=== PATIENT | male | born 1950 | race Caucasian/White ===

== ENCOUNTER 2021-01-14 11:31 | Outpatient (REF) | payer MEDICARE, OTHER, SELFPAY ==
[2021-01-14 13:02] LABS: Appearance Urine CLEAR; Color Urine YELLOW; Glucose Urine UA NEG (NEG); Leukocyte Esterase Urine NEG (NEG); Nitrite Urine NEG (NEG); PH 5.5 (5.0-8.0); Specific Gravity - Urine 1.025 (1.005-1.025); Urine Blood NEG (NEG); Urine Ketones NEG (NEG); Urine Protein TRACE MG/DL (NEG-TRACE)
[2021-01-14 13:19] LABS: Imm Gran Abs Auto 0.01 X10*3/uL (0.00-0.03); Imm Gran Pct Auto 0.2 % (0.0-0.4); MANUAL DIFF FLAG SCAN; Mean Corpuscular Hemoglobin 31.3 pg (27.0-33.0); PLT CLUMP 1; SCAN SMEAR FLAG 1
[2021-01-14 13:22] LABS: Basophils Percent Auto 0.8 % (0-2); Eosinophils Absolute Auto 0.1 X10*3/uL (0.0-0.4); Eosinophils Percent Auto 2.5 % (0-4); Hematocrit 43.2 % (42-52); Hemoglobin 14.5 g/dl (14.0-18.0); Mean Corpuscular HGB Conc 33.6 g/dl (31.0-36.0); Mean Corpuscular Volume 93.3 fL (80-98); Mean Platelet Volume 11.1 fL (9.4-12.4); Monocytes Absolute Auto 0.5 X10*3/uL (0.1-1.2); Neutrophils Absolute Auto 3.2 X10*3/uL (2.0-8.3); Neutrophils Percent Auto 66.5 % (45-73); Red Blood Count 4.63 X10*6/uL (4.60-5.80); Red Cell Distribution Width 14.6 % (11.0-16.0); White Blood Count 4.8 X10*3/uL (4.8-10.8)
[2021-01-14 13:44] LABS: Platelet Count 83 X10*3/uL (160-400)
[2021-01-14 13:45] LABS: SLIDE REVIEW VERIFIED
[2021-01-14 13:58] LABS: Creatinine Urine 136.14 mg/dL; Microalbum/Creatinine Ratio Ur 9.5 ug/mg cr; Protein/Creatinine Ratio, Ur 0.15 (<0.2); Total Protein Urine Random 20 mg/dL (<12)
[2021-01-14 14:15] LABS: Albumin Level 4.3 g/dL (3.5-5.0); Anion Gap 13 (12-20); Blood Urea Nitrogen 33 mg/dL (9-16); Calcium 8.8 mg/dL (8.4-10.2); Carbon Dioxide 18 mmol/L (22-29); Chloride 115 mmol/L (96-108); Estimated Glomerular Filt Rate 37; Magnesium 1.9 mg/dL (1.6-2.6); Phosphorus 3.6 mg/dL (2.7-4.5); Potassium 4.1 mmol/L (3.3-5.1); Sodium 142 mmol/L (135-145); Total Protein 6.5 g/dL (6.5-8.0)
[2021-01-14 15:18] LABS: Renal w Reflex Lab Use Only Order verified
== END 2021-01-14 11:32 | disposition home or self-care (01) ==
LOC: HO.LAB 11:31
PROVIDERS: PCP Family Medicine; Visit Provider Internal Medicine Nephrology
DX: I12.9 Hypertensive chronic kidney disease with stage 1 through stage 4 chronic kidney disease, or unspecified chronic kidney disease (principal); N18.4 Chronic kidney disease, stage 4 (severe); N20.0 Calculus of kidney; D63.1 Anemia in chronic kidney disease
CPT/HCPCS: 36415; 80051; 81003; 82040; 82043; 82306; 82310; 82565; 83735; 84100; 84155; 84156; 84520; 85025

== ENCOUNTER 2021-02-18 08:02 | Day surgery (SDC) | payer MEDICARE, OTHER, SELFPAY ==
[2021-02-12 14:35] VITALS: BMI 22.2
--- NOTE | 2021-02-15 08:44 | P.CONAN_ITS ---
Documented by User: Pam Anthony NP 02/15/21 08:47 HPI - Anesthesia Eval Consult details Narrative: 70yo M for ?Upper Endoscopy and Colonoscopy ETOH cirrhosis (no ETOH since 2015) - h/o varices with banding. On transplant list with [facility] Past Medical History Medical History Anxiety Chronic kidney disease (CKD), stage III (moderate) Cirrhosis Crohn's disease Depression Gout Has a tremor History of basal cell cancer History of blood transfusion Hx of esophageal varices Hx of renal calculi Liver transplant candidate Neuropathy Surgical History Surgical History History of esophagogastroduodenoscopy (EGD) Hx of colectomy Hx of colonoscopy Hx of cystoscopy Social History Social History (Updated 02/12/21 @ 14:30 by Dia Lucia RN) Alcohol intake: former Year quit: 2016 Patient Tobacco Use Status: Never used Tobacco Use of substances other than those prescribed or required for medical reasons: No Are you DNR?: No Advance Directives: No Advance Directives Information Provided: Yes (mailed info) Advance Directives on File: No Recently lost weight without trying: No Meds Allergies Allergy/AdvReac Type Severity Reaction Status Date / Time No Known Allergies Allergy Verified 02/18/21 08:17 Home Medications Medication Instructions Recorded Confirmed Last Taken Type bupropion HCl 100 mg tablet,12 hr 1 tab PO QAM 02/12/21 02/12/21 Unknown History sustained-release cholecalciferol (vitamin D3) 50 50 mcg PO DAILY 02/12/21 02/12/21 Unknown History mcg (2,000 unit) capsule (Vitamin D3) cyanocobalamin (vitamin B-12) 1 ml IM QMONTH 02/12/21 02/12/21 Unknown History 1,000 mcg/mL injection solution iron 02/12/21 02/12/21 Unknown History lamotrigine 100 mg tablet 1 tab PO BEDTIME 02/12/21 02/12/21 Unknown History mirtazapine 30 mg tablet 1 tab PO BEDTIME 02/12/21 02/12/21 Unknown History multivitamin 1 tab PO DAILY 02/12/21 02/12/21 Unknown History potassium citrate 15 mEq (1,620 1 tab PO BID 02/12/21 02/12/21 Unknown History mg) tablet,extended release propranolol 40 mg tablet 1 tab PO BEDTIME 02/12/21 02/12/21 Unknown History Exam Exam Date and Time: February 15, 2021 0844 Height,Weight and Vital Signs: Height 6 ft Weight 74.389 kg Pertinent Lab Results Pertinent Lab Results: Laboratory Tests 01/14/21 01/14/21 11:35 11:57 WBC 4.8 Hgb 14.5 Hct 43.2 Plt Count 83 L Sodium 142 Potassium 4.1 Chloride 115 H Carbon Dioxide 18 L BUN 33 H Creatinine 1.81 H Estimated GFR 37 Calcium 8.8 Phosphorus 3.6 Magnesium 1.9 Total Protein 6.5 Albumin 4.3 Assessment and Plan Assessment Anesthesia Assessment: Chart Reviewed Documented by User: Brandon Hart MD 02/18/21 09:11 [facility] Past Medical History Medical History Anxiety Chronic kidney disease (CKD), stage III (moderate) Cirrhosis Crohn's disease Depression Gout Has a tremor History of basal cell cancer History of blood transfusion Hx of esophageal varices Hx of renal calculi Liver transplant candidate Neuropathy Surgical History Surgical History History of esophagogastroduodenoscopy (EGD) Hx of colectomy Hx of colonoscopy Hx of cystoscopy Social History Social History (Updated 02/12/21 @ 14:30 by Dia Lucia RN) Alcohol intake: former Year quit: 2016 Patient Tobacco Use Status: Never used Tobacco Use of substances other than those prescribed or required for medical reasons: No Are you DNR?: No Advance Directives: No Advance Directives Information Provided: Yes (mailed info) Advance Directives on File: No Recently lost weight without trying: No Meds Allergies Allergy/AdvReac Type Severity Reaction Status Date / Time No Known Allergies Allergy Verified 02/18/21 08:17 Home Medications Medication Instructions Recorded Confirmed Last Taken Type bupropion HCl 100 mg tablet,12 hr 1 tab PO QAM 02/12/21 02/12/21 Unknown History sustained-release cholecalciferol (vitamin D3) 50 50 mcg PO DAILY 02/12/21 02/12/21 Unknown Histor y mcg (2,000 unit) capsule (Vitamin D3) cyanocobalamin (vitamin B-12) 1 ml IM QMONTH 02/12/21 02/12/21 Unknown History 1,000 mcg/mL injection solution iron 02/12/21 02/12/21 Unknown History lamotrigine 100 mg tablet 1 tab PO BEDTIME 02/12/21 02/12/21 Unknown History mirtazapine 30 mg tablet 1 tab PO BEDTIME 02/12/21 02/12/21 Unknown History multivitamin 1 tab PO DAILY 02/12/21 02/12/21 Unknown History potassium citrate 15 mEq (1,620 1 tab PO BID 02/12/21 02/12/21 Unknown History mg) tablet,extended release propranolol 40 mg tablet 1 tab PO BEDTIME 02/12/21 02/12/21 Unknown History Exam Airway Mallampati Class: II TM Dist: >3cm Neck ROM: Full
[2021-02-18 08:42] VITALS: BP 141/86; PULSE 79; RESP 16; TEMP 36.6; O2SAT 99
[2021-02-18] MEDS: Lactated Ringers 1,000 ML 100 ML IVCONT (08:55)
[2021-02-18 10:20] VITALS: BP 121/81; PULSE 81; RESP 12; TEMP 36.6; O2SAT 97
--- NOTE | 2021-02-18 10:26 | PM.OP ---
Brief Operative Note Date of Service: 02/18/21 Pre-op diagnosis: Cirrhosis, Crohn's, and Screening Post-op diagnosis: other (Esophageal varices, Duodenitis, Crohn's disease) Procedure: EGD and Colonoscopy to the anastomosis and SI with biopsies Surgeon: Sameer Valenzuela Anesthesia: MAC Was an Assembler [employer] used for this Procedure?: No Estimated blood loss (mL): 5.0 Pathology: other (A. Transverse colon B. Descending colon C. Sigmoid colon D. Rectum) Condition: stable Disposition: PACU
[2021-02-18 10:35] VITALS: BP 102/69; PULSE 80; RESP 16; TEMP 36.6; O2SAT 97
--- NOTE | 2021-02-18 11:06 | OP_ITS ---
SURGEON: Sameer Valenzuela MD INDICATIONS: The patient presents for evaluation of underlying history of cirrhosis and colorectal cancer screening with history of Crohn's colitis and family history of colon cancer. Full consent has been obtained from him for both procedures, including risks of bleeding and perforation. PREOPERATIVE DIAGNOSIS: POSTOPERATIVE DIAGNOSIS: PROCEDURE PERFORMED: Esophagogastroduodenoscopy, and colonoscopy to the anastomosis and small bowel with biopsies. ESTIMATED BLOOD LOSS: COMPLICATIONS: ANESTHESIA: Monitored anesthesia care. ASSISTANTS: SPECIMENS: PREOPERATIVE DIAGNOSES: Cirrhosis, colorectal cancer screening, history of Crohn disease, family history of colon cancer. POSTOPERATIVE DIAGNOSES: Cirrhosis, colorectal cancer screening, history of Crohn disease, family history of colon cancer, esophageal varices, duodenitis, chronic Crohn's colitis, internal hemorrhoids, diverticulosis. DESCRIPTION OF PROCEDURE: The patient was placed in the left lateral decubitus position. The Olympus video gastroscope was passed in the posterior oropharynx and upper esophagus under direct vision. The scope was passed slowly into the distal esophagus. The gastroesophageal junction appeared at 38 cm. Extending from this to approximately 33 cm, were 3 chains of grade 2 esophageal varices without any overlying mucosal changes of erythema, red cook, vessels, ulceration, nor bleeding. There was no esophagitis. The scope entered into the stomach. There was a small hiatal hernia. The scope was advanced to pylorus and duodenum was cannulated to the descending portion. The duodenum including the bulb appeared normal and some very minimal changes of duodenitis in the duodenal bulb. The scope was withdrawn back into the stomach. The gastric antrum and body appeared normal with good peristalsis. The scope was retroflexed visualizing the proximal stomach carefully, which appeared normal, without any sign of mass or ulceration. There was no varices nor portal gastropathy. The scope was straightened out and withdrawn back into the esophagus. Proximal to 33 cm, the esophageal mucosa appeared normal. The scope was withdrawn from the patient. He was turned around for colonoscopy. The digital rectal exam revealed no abnormalities. The Olympus video pediatric colonoscope was entered into the rectum and advanced easily to the level of the anastomosis. The small bowel was cannulated and appeared normal other than some very minimal areas of erosions. There was no significant active Crohn's disease. The anastomosis appeared normal. The scope was slowly withdrawn assessing all mucosal surfaces carefully. Preparation was good, but did have some significant areas of liquid stool, which were irrigated and removed with suction as best as possible. I did not visualize any sign of polyps. The mucosa did appear somewhat edematous, erythematous, and with some possible chronic changes of previous colitis, but there was no sign of any active colitis, polyps, nor angiodysplasias. Random biopsies were obtained in the transverse colon, descending colon, sigmoid colon, and rectum. There was some mild amount of sigmoid diverticulosis. In the rectum, scope was retroflexed visualizing internal hemorrhoids as well. The scope was straightened out and withdrawn from the patient. He tolerated both procedures well and was returned to the recovery area in stable condition. IMPRESSION: 1. Esophageal varices. 2. Duodenitis. 3. History of Crohn disease, rule out dysplasia. 4. Diverticulosis. 5. Internal hemorrhoids. PLAN: The results of the biopsies will be checked. Assuming there is no dysplasia, I would recommend repeat colonoscopy in 5 years. He is currently asymptomatic without any specific treatment for Crohn's disease and we shall continue to observe him. He has been advised to stay off all aspirin and NSAIDs long-term. He was advised to speak with his speech language pathology assistant at [facility] regarding possibly switching over his propranolol to Nadolol given the finding of the varices. He will be started on omeprazole 20 mg daily. I would recommend that he see me in 1 year for a followup visit, repeat colonoscopy in 5 years, and continue follow up with the [facility]. MD BRISA Mills/JOAQUIN / [id number] MTDD
== END 2021-02-18 11:20 | disposition home or self-care (01) ==
PROVIDERS: PCP Family Medicine; Visit Provider Internal Medicine
PROC: (CPT 45380; principal; 2021-02-18 09:10)
DX: Z12.11 Encounter for screening for malignant neoplasm of colon (principal); Z86.010 Personal history of colon polyps; Z80.0 Family history of malignant neoplasm of digestive organs; K57.30 Diverticulosis of large intestine without perforation or abscess without bleeding; K64.8 Other hemorrhoids; Z87.19 Personal history of other diseases of the digestive system; K74.69 Other cirrhosis of liver; I85.00 Esophageal varices without bleeding; K29.80 Duodenitis without bleeding; K44.9 Diaphragmatic hernia without obstruction or gangrene; Z79.899 Other long term (current) drug therapy
CPT/HCPCS: 45380; 43235; 88305; J2370

== ENCOUNTER 2021-10-15 15:13 | Outpatient (REF) | payer MEDICARE, OTHER, SELFPAY ==
[2021-10-15 15:41] LABS: Imm Gran Abs Auto 0.01 X10*3/uL (0.00-0.03); Imm Gran Pct Auto 0.2 % (0.0-0.4); Mean Corpuscular Volume 95.2 fL (80.0-98.0); Mean Platelet Volume 10.5 fL (9.4-12.4)
[2021-10-15 15:43] LABS: Basophils Percent Auto 0.7 % (0-2); Eosinophils Absolute Auto 0.1 X10*3/uL (0.0-0.4); Eosinophils Percent Auto 2.1 % (0-4); Hematocrit 39.8 % (42.0-52.0); Hemoglobin 13.6 g/dl (14.0-18.0); Mean Corpuscular HGB Conc 34.2 g/dl (31.0-36.0); Mean Corpuscular Hemoglobin 32.5 pg (27.0-33.0); Monocytes Absolute Auto 0.6 X10*3/uL (0.1-1.2); Neutrophils Absolute Auto 2.5 x10*3/uL (2.0-8.3); Red Blood Count 4.18 X10*6/uL (4.60-5.80); Red Cell Distribution Width 14.6 % (11.0-16.0)
[2021-10-15 15:47] LABS: White Blood Count 4.2 X10*3/uL (4.8-10.8)
[2021-10-15 15:48] LABS: Platelet Count 95 X10*3/uL (160-400)
[2021-10-15 16:04] LABS: Albumin Level 4.2 g/dL (3.5-5.0); Anion Gap 11 (12-20); Blood Urea Nitrogen 36 mg/dL (9-16); Calcium 8.7 mg/dL (8.4-10.2); Carbon Dioxide 20 mmol/L (22-29); Chloride 115 mmol/L (96-108); Estimated Glomerular Filt Rate 39; Magnesium 1.9 mg/dL (1.6-2.6); Phosphorus 3.5 mg/dL (2.7-4.5); Potassium 4.5 mmol/L (3.3-5.1); Sodium 141 mmol/L (135-145)
[2021-10-15 16:24] LABS: Vitamin D 25-OH Total 28.7 ng/mL (>30)
[2021-10-15 17:58] LABS: Appearance Urine CLEAR; Color Urine YELLOW; Glucose Urine UA NEG (NEG); Leukocyte Esterase Urine NEG (NEG); Nitrite Urine NEG (NEG); PH 5.5 (5.0-8.0); Urine Blood NEG (NEG); Urine Ketones NEG (NEG); Urine Protein NEG (NEG-TRACE)
[2021-10-15 18:19] LABS: Creatinine Urine 86.87 mg/dL; Microalbumin Urine < 5.0 mg/L; Total Protein Urine Random < 7 mg/dL (<12)
[2021-10-16 15:47] LABS: Calcium (PTHI) 8.9 mg/dL (8.6-10.3); PTHI 89 pg/mL (16-77)
== END 2021-10-15 15:14 | disposition home or self-care (01) ==
LOC: HO.LAB 15:13
PROVIDERS: Visit Provider Internal Medicine Nephrology
DX: I12.9 Hypertensive chronic kidney disease with stage 1 through stage 4 chronic kidney disease, or unspecified chronic kidney disease (principal); N18.32 Chronic kidney disease, stage 3b; D63.1 Anemia in chronic kidney disease; N20.0 Calculus of kidney; K74.69 Other cirrhosis of liver
CPT/HCPCS: 36415; 80051; 81003; 82040; 82043; 82306; 82310; 82565; 83735; 83970; 84100; 84156; 84520; 85025; 87086

== ENCOUNTER 2024-06-06 15:23 | Outpatient (REF) | payer MEDICARE, OTHER, SELFPAY ==
[2024-06-06 16:28] LABS: Basophils Percent Auto 0.8 % (0-2); Eosinophils Absolute Auto 0.1 X10*3/uL (0.0-0.4); Eosinophils Percent Auto 3.2 % (0-4); Hemoglobin 13.2 g/dl (14.0-18.0); Lymphocytes Absolute Auto 0.4 X10*3/uL (1.2-4.9); Lymphocytes Percent Auto 15.4 % (20-40); MANUAL DIFF FLAG SCAN; Mean Corpuscular HGB Conc 33.8 g/dl (31.0-36.0); Mean Corpuscular Hemoglobin 30.8 pg (27.0-33.0); Mean Corpuscular Volume 91.1 fL (80.0-98.0); Mean Platelet Volume 9.8 fL (9.4-12.4); Monocytes Absolute Auto 0.3 X10*3/uL (0.1-1.2); Monocytes Percent Auto 10.5 % (2-11); Neutrophils Absolute Auto 1.7 x10*3/uL (2.0-8.3); Neutrophils Percent Auto 70.1 % (45-73); Red Blood Count 4.28 X10*6/uL (4.60-5.80); Red Cell Distribution Width 15.8 % (11.0-16.0); SCAN SMEAR FLAG 1
[2024-06-06 16:29] LABS: Platelet Count 65 X10*3/uL (160-400); White Blood Count 2.5 X10*3/uL (4.8-10.8)
[2024-06-06 16:50] LABS: SLIDE REVIEW VERIFIED
--- OUTSIDE RECORDS SUMMARY | 2024-06-06 16:59 | XMS_ITS | Encounter Summary ---
Author Organization [facility] Address [address] [facility] [address] [place] [address] Phone Care Team Providers Care Milieu Technician Name Role Phone Curt Davis MD Primary Care Provider [phone] Reason for Visit * Reason Comments Med Refill Encounter Details Date Type Department Care Team (Late st Contact Info) Description 02/25/2024 Refill [facility] [address] [facility] [address] [place] [address] Jsotin Gorman MD [address] [address] Social History Tobacco Use Types Packs/Day Years Used Date Smoking Tobacco: Never Smokeless Tobacco: Never Alcohol Use Standard Drinks/Week Comments Yes 0 (1 standard drink = 0.6 oz pure alcohol) Alcoholic Drinks/day: Occasional social drink Sex and Gender Information Value Date Recorded Sex Assigned at Not on file Legal Sex Male 5:06 PM EST Gender Identity Not on file Sexual Orientation Not on file documented as of this encounter Plan of Treatment Upcoming Encounters Date Type Department Care Team (Late st Contact Info) Description 12/05/2024 2:30 PM EDT Office Visit [facility] [address] [place] [address] Jostin Gorman MD [address] [address] documented as of this encounter Visit Diagnoses Not on filedocumented in this encounter Care Teams Milieu Technician Relationship Specialty Start Date End Date Curt Davis MD [address] [place] [address] PCP - General 05/14/20 documented as of this encounter
--- OUTSIDE RECORDS SUMMARY | 2024-06-06 16:59 | XMS_ITS | Clinical Summary ---
Author Organization [facility] Address [address] [place] [address] [address] [place] [address] Phone Care Team Providers Care Mortgage Processor Name Role Phone Curt Davis MD Primary Care Provider [phone] Allergies No known active allergies Medications lamoTRIgine (LaMICtal) 100 MG dispersible tablet Take 1 tablet by mouth 1 (one) time each day Active ferrous sulfate 325 (65 Fe) MG tablet Take 325 mg by mouth 1 (one) time each day with breakfast Active cyanocobalamin (VITAMIN B-12) 1000 MCG/ML injection Comments: Filled Date: Oct 31 2014 12:00AM Patient Notes: INJECT 1 ML ONCE MONTHLY INTRAMUSCULARLY Duration: 30 11/01/19 15 Active Cholecalciferol 50 MCG (1999 UT) capsule Take 1 capsule by mouth 1 (one) time each day Active buPROPion (WELLBUTRIN) 100 MG tablet Take 1 tablet by mouth 1 (one) time each day Active Multiple Vitamin (multivitamin) capsule Take 1 capsule by mouth 1 (one) time each day Active mirtazapine (REMERON) 30 MG tablet Take 30 mg by mouth 1 (one) time each day 11/22/19 21 Active propranolol (INDERAL) 40 MG tablet Take 40 mg by mouth 1 (one) time each day 11/20/19 21 Active Potassium Citrate ER 15 MEQ (1620 MG) tablet controlled-rele ase TAKE 1 TABLET BY MOUTH TWICE A DAY 120 tablet 3 05/11/19 24 Active Additional Information Patient not taking.Reported on 06/06/2024 DULoxetine (CYMBALTA) [address] capsule Take by mouth 1 (one) time each day Activ e famotidine (PEPCID) 40 MG tablet Take 40 mg by mouth 1 (one) time each day in the evening Active Active Problems Problem Noted Date Diagnosed Date Closed trimalleolar fracture 11/07/2021 Regional enteritis of small intestine with large intestine 11/07/2021 Diarrhea 11/07/2021 Diverticulosis of colon 11/07/2021 Duodenitis 11/07/2021 History of esophageal varices 11/07/2021 History of gastrointestinal tract bypass 022 History of polyp of colon 11/07/2021 Non-healing surgical wound 11/07/2021 Open reduction of fracture with internal fixatio n 11/07/2021 Screening for malignant neoplasm of colon 2021 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/2021 Stage 3b chronic kidney disease 01/21/2021 Anemia in chronic kidney disease 01/16/2021 Chronic kidney disease stage 3 01/16/2021 Chronic kidney disease stage 4 01/16/2021 Hypertensive renal disease 01/16/2021 Renal stone 01/16/2021 Hyperuricemia without signs of inflammatory arthritis and tophaceous disease 01/16/2021 Awaiting organ transplant status 04/19/2017 Awaiting transplantation 04/19/2017 Lesion of liver 04/17/2017 Crohn's disease 02/21/2017 Portal systemic encephalopathy 08/12/2016 Depressive disorder 05/12/2016 Major depression, single episode 05/12/2016 Esophageal varix 04/14/2016 Cryptogenic cirrhosis of liver 04/14/2016 Recurrent kidney stone 04/14/2016 Encounters Date Type Department Care Team Description 06/06/2024 2:30 PM EST [facility] [address] [place] [address] Jostin Gorman MD Stage 3b chronic kidney disease (HCC) (Primary Dx); Renal stone; Hypertensive renal disease 03/24/2024 Office Communication [facility] [address] [facility] [address] [place] [phone] Jostin Gorman MD 03/22/2024 Refill [facility] [address] [place] [phone] Jostin Gorman MD from Last 3 Months Immunizations Name Administration Dates Next Due Hep B, Dialysis 05/20/2016 Hepatitis A 12/16/2016,05/20/2016 Hepatitis B 12/16/2016,08/12/2016,06/23/2016 Influenza Split High Dose Pr eservative Free IM 02/01/2019 Influenza, Quadrivalent, Preservative Free 02/02 Pfizer SARS-COV-2 07/26/2020,07/05/2020,07/04/19 21 Pneumococcal Conjugate 13-Valent 05/20/2016 Td, Unspecified 05/21/2006 Tdap 05/20/2016 Zoster 09/20/2012 Social History Tobacco Use Types Packs/Day Years [...] on file Sexual Orientation Not on file Last Filed Vital Signs Vital Sign Reading Time Taken Comments Blood Pressure 128/90 06/06/2024 2:23 PM EST Pulse 78 06/06/2024 2:23 PM EST Temperature - - Respiratory Rate - - Oxygen Saturation 97% 06/06/2024 2:23 PM EST Inhaled Oxygen Concentration - - Weight 69.9 kg (154 lb) 06/06/2024 2:23 PM EST Height 182.9 cm (6') 05/23/2019 12:00 PM EST Body Mass Index 20.89 05/23/2019 12:00 PM EST Plan of Treatment Upcoming Encounters Date Type Department Care Team (Late st Contact Info) Description 12/05/2024 2:30 PM EDT Office [facility] [address] [place] [address] Jostin Gorman MD [address] [facility] [address] [place] [address] Health Maintenance Due Date Last Done Comments Colorectal Cancer Screening: Annual FOBT 07/28/1999 Colorectal Cancer Screening: Colonoscopy 07/28/1999 Colorectal Cancer Screening: Sigmoidoscopy 07/28/1999 Hepatitis B Vaccine (1 of 3 - Risk 3-dose series) 2010 12/16/2016, 08/12/2016, 06/23/2016, Additional history exists Pneumococcal Vaccine: 65+ Ye ars (2 of 2 - PPSV23 or PCV20) 07/15/2016 05/20/2016 Influenza Vaccine (#1) 2024 02/01/2019, 2017 Procedures Procedure Name Priority Date/Time Associated Diagnosis Comments DIFF SLIDE REVIEW (HC) Routine 06/06/2024 3:47 PM EST CBC AND DIFFERENTIAL Routine 06/06/2024 3:47 PM EST from Last 3 Months Results * Diff Slide Review (06/06/2024 3:47 PM EST) Slide Review VERIFIED See ord er comments 06/06/2024 3:47 PM EST 06/06/2024 3:47 PM EST us Jostin Gorman MD LAB [id number] SOLICITED RESULTS Final Result [place] See order comments [place] [address] * (ABNORMAL) CBC and Differential (06/06/2024 3:47 PM EST) WBC 2.5(L) 4.8 - 10.8 X10*3/uL See order comments RBC 4.28(L) 4.60 - 5.80 X10*6/uL See order comments Hgb 13.2(L) 14.0 - 18.0 g/dl See order comments Hematocrit 39.0(L) 42.0 - 52.0 % See order comments MCV 91.1 80.0 - 98.0 fL See order comments MCH 30.8 27.0 - 33.0 pg See order comments MCHC 33.8 31.0 - 36.0 g/dl See order comments RDW 15.8 11.0 - 16.0 % See order comments Platelets 65(L) 160 - 400 X10*3/uL See order comments MPV 9.8 9.4 - 12.4 fL See order comments Neutrophils % Auto 70.1 45 - 73 % See order comments Immature Granulocytes 0.0 0.0 - 0.4 % See order comments Lymphocytes Relative 15.4(L) 20 - 40 % See order comments Monocytes 10.5 2 - 11 % See order comments Eosinophils Relative 3.2 0 - 4 % See order comments Basophils Relative 0.8 0 - 2 % See order comments nRBC Count 0.0 0.0 - 0.2 /100WBC See order comments Neutrophils Absolute 1.7(L) 2.0 - 8.3 x10*3/uL See order comments Immature Grans (Absolute) 0.00 0.00 - 0.03 X10*3/uL See order comments Lymphocytes Absolute 0.4(L) 1.2 - 4.9 X10*3/uL See order comments Monocytes Absolute 0.3 0.1 - 1.2 X10*3/uL See order comments Eosinophils Absolute 0.1 0.0 - 0.4 X10*3/uL See order comments Basophils Absolute 0.0 0.0 - 0.2 X10*3/uL See order comments NRBC Absolute 0.000 0.0 - 0.012 X10*3/uL See order comments 06/06/2024 3:47 PM EST 06/06/2024 3:47 PM EST us Jostin Gorman MD LAB BLOOD ORDERABLES Edited R esult - Final [place] See order comments [place] [address] from Last 3 Months Insurance [facility] MEDICARE RR [facility] MEDICARE RR Care Teams Mortgage Processor Relationship Specialty Start Date End Date Curt Davis MD [address] [place] [phone] PCP - General 05/14/20
--- OUTSIDE RECORDS SUMMARY | 2024-06-06 16:59 | XMS_ITS | Encounter Summary ---
Author Organization [facility] Address [address] [place] [address] Care Team Providers Care Material Handler Name Role Phone Unknown, Doctor Primary Care Provider Unavailabl e Encounter Details Date Type Department Care Team (Late st Contact Info) Description 02/04/2017 Transplant Conversio n Encounter [facility] Health Information Management [address] [place] [phone] Provider, Historical Conversion [place] Social History Tobacco Use Types Packs/Day Years Used Date Smoking Tobacco: Never Comments:: Sex and Gender Information Value Date Recorded Sex Assigned at Male 04/06/2023 3:08 PM EST Legal Sex Male 7:14 PM EDT Gender Identity Not on file Sexual Orientation Not on file documented as of this encounter Plan of Treatment Not on file documented as of this encounter Visit Diagnoses Not on filedocumented in this encounter Care Teams Material Handler Relationship Specialty Start Date End Date Unknown, Doctor Unknown Unknown, PRAKASH PCP - General 04/02/23 documented as of this encounter
--- OUTSIDE RECORDS SUMMARY | 2024-06-06 16:59 | XMS_ITS | Encounter Summary ---
Author Organization [facility] Address [address] [facility] [address] [place] [address] Phone Care Team Providers Care [facility]astic [facility] Products Assembler Name Role Phone Curt Davis MD Primary Care Provider [phone] Encounter Details Date Type Department Care Team ([facility] Contact Info) Description 05/08/2021 Telephone [facility] [address] [facility] [address] [place] [address] Yoly Leyva Social History Tobacco Use Types Packs/Day Years [...] on file Sexual Orientation Not on file COVID-19 Exposure Response Date Recorded In the last month, have you been in contact with someone who was confirmed or suspected to have Coronavirus / COVID-19? No / Unsure 04/19/2021 11:48 AM EST documented as of this encounter Plan of Treatment Upcoming Encounters Date Type Department Care Team (Late Contact Info) Description 12/05/2024 2:30 PM EDT Office Visit [facility] [address] [place] [address] Jostin Gorman MD [address] [facility] [address] [place] [phone] documented as of this encounter Visit Diagnoses Not on filedocumented in this encounter Care Teams Plastic [facility] Products Assembler Relationship Specialty Start Date End Date Curt Davis MD [address] [place] [phone] PCP - General 05/14/20 documented as of this encounter
--- OUTSIDE RECORDS SUMMARY | 2024-06-06 16:59 | XMS_ITS | Clinical Summary ---
Author Organization [facility] Address [address] [place] [address] Care Team Providers Care Tool Designer Name Role Phone Curt Davis MD Primary Care Provider Allergies No known active allergies Medications Medication Sig Dispensed Refills Start Date End Date Status mirtazapine (REMERON) 30 MG tablet Take 30 mg by mouth nightly. Active propranolol (INDERAL) 40 MG tablet Take 40 mg by mouth 2 (two) times a day. Active buPROPion (WELLBUTRIN SR) 100 MG 12 hr tablet Take 100 mg by mouth 2 (two) times a day in the morning and the early evening.. Active potassium citrate (UROCIT-K) 10 MEQ (1080 MG) ER tablet Take 15 mEq by mouth 3 (three) times a day. Swallow tablet whole with full glass of water Active lamoTRIgine (LaMICtal) 100 MG tablet Take 100 mg by mouth daily. Active cyanocobalamin (VITAMIN B-12) 1000 MCG/ML injection Inject 1,000 mcg under the skin. Active Social History Tobacco Use Types Packs/Day Years Used Date Smoking Tobacco: Never Smokeless Tobacco: Never Alcohol Use Standard Drinks/Week Comments Never 0 (1 standard drink = 0.6 oz pur e alcohol) Sex and Gender Information Value Date Recorded Sex Assigned at Not on file Gender Identity Not on file Sexual Orientation Not on file Last Filed Vital Signs Vital Sign Reading Time Taken Comments Blood Pressure 119/80 12/02/2021 1:46 PM EDT Pulse 74 12/02/2021 1:46 PM EDT Temperature 35.7 ??C (96.2 ??F) 12/02/2021 1:46 PM ED T Respiratory Rate 16 12/02/2021 1:46 PM EDT Oxygen Saturation 98% 12/02/2021 1:46 PM EDT Inhaled Oxygen Concentration - - Weight - - Height - - Body Mass Index - - Plan of Treatment Health Maintenance Due Date Last Done Comments Hepatitis C Virus Screening 1950 DTaP/Tdap/Td Vaccines (1 - Tdap) 1969 Colonoscopy 07/28/1995 Pneumococcal Vaccines 50+ (1 of 1 - PCV) 2000 Zoster (Shingles) Vaccine (1 of 2) 2000 Influenza Vaccine 12/03/2023 02/02/2020, , 02/01/2019, Additional history exists COVID-19 Vaccine ( season) 2024 07/26/2020, 07/03/2020 RSV Vaccine 60 years and older and Patients (1 - 1-dose 75+ series) 2025 Hepatitis B Vaccines Aged Out No long er eligible based on patient's age to complete this topic Care Teams Tool Designer Relationship Specialty Start Date End Date Curt Davis MD [address] [place] [phone] PCP - General Family Medicine 12/02/21
--- OUTSIDE RECORDS SUMMARY | 2024-06-06 16:59 | XMS_ITS | Encounter Summary ---
Author Organization [facility] Address [address] [address] Phone Care Team Providers Care Slurry Control Operator Helper Name Role Phone Curt Davis MD Primary Care Provider [phone] Encounter Details Date Type Department Care Team (Late st Contact Info) Description 03/24/2024 Office Communication [facility] P. [address] [address] Jostin Gorman MD [address] [address] Social History Tobacco Use Types [...] on file documented as of this encounter Miscellaneous Notes * Telephone Encounter - Winter Salgado - 03/24/2024 10:11 AM EST 06/06/2024 [place] location * Telephone Encounter - Jostin Gorman MD - 03/24/2024 9:30 AM EST Needs f/u 2-4 months documented in this encounter Plan of Treatment Upcoming Encounters Date Type Department Care Team (Late st Contact Info) Description 12/05/2024 2:30 PM EDT Office Visit [facility] [address] [place] [address] Jostin Gorman MD [address] [facility] [address] [place] [address] documented as of this encounter Visit Diagnoses Not on filedocumented in this encounter Care Teams Slurry Control Operator Helper Relationship Specialty Start Date End Date Curt Davis MD [address] [place] [address] PCP - General 05/14/20 documented as of this encounter
--- OUTSIDE RECORDS SUMMARY | 2024-06-06 16:59 | XMS_ITS | Encounter Summary ---
Author Organization [facility] [place] Address [address] [facility] [address] [place] [address] Phone Care Team Providers Care Inspector Precision Assembly Name Role Phone Curt Davis MD Primary Care Provider [phone] Reason for Visit * Reason Comments Med Change Request Encounter Details Date Type Department Care Team (Late Contact Info) Description 02/21/2024 Refill [facility] [address] [facility] [address] [place] [address] Jostin Gorman MD [address] [address] Social History Tobacco Use [...] Visit [facility] [address] [place] [address] Jostin Gorman MD [address] [address] documented as of this encounter Visit Diagnoses Not on filedocumented in this encounter Care Teams Inspector Precision Assembly Relationship Specialty Start Date End Date Curt Davis MD [address] [place] [address] PCP - General 05/14/20 documented as of this encounter
--- OUTSIDE RECORDS SUMMARY | 2024-06-06 16:59 | XMS_ITS | Encounter Summary ---
Author Organization [facility] [place] Address [address] [facility] [address] [place] [address] Phone Care Team Providers Care Back Hoe Machine Operator Name Role Phone Curt Davis MD Primary Care Provider [phone] Reason for Visit * Reason Comments Med Refill Encounter Details Date Type Department Care Team (Late st Contact Info) Description 03/22/2024 Refill [facility] [address] [facility] [address] [place] [address] Jostin Gorman MD [address] [address] Social History Tobacco Use Types [...] Visit [facility] [address] [place] [address] Jostin Gorman MD [address] [address] documented as of this encounter Visit Diagnoses Not on filedocumented in this encounter Care Teams Back Hoe Machine Operator Relationship Specialty Start Date End Date Curt Davis MD [address] [place] [address] PCP - General 05/14/20 documented as of this encounter
--- OUTSIDE RECORDS SUMMARY | 2024-06-06 16:59 | XMS_ITS | Clinical Summary ---
Author Organization [facility] Address [address] [place] [address] Care Team Providers Care Front Desk Attendant Name Role Phone Unknown, Doctor Primary Care Provider Unavailabl e Allergies No known active allergies Medications syringe with needle 3 mL 25 gauge x 1 syringe 3 mL 25 gauge 1 USE TO INJECT CYANOCOBALAMIN ONCE A MONTH 5 Active cyanocobalamin (VITAMIN B12) 1,000 mcg/mL injection 6 Active multivitamin (THERAGRAN) tablet Take 1 tablet by mouth daily. Active cholecalcifero l (VITAMIN D3) 2,000 unit tablet Vitamin D3 2000 UNIT Oral Tablet pt states taking daily Refills: 0 Active Active propranoloL (INDERAL) 40 mg tablet Take 40 mg by mouth 2 times a day. Pt state taking 20MG daily. 1 Active ferrous sulfate 325 mg (65 mg iron) tablet Comments: Patient Notes: TAKE 1 TABLET BY MOUTH ONCE A DAY Duration: 30 Active cholestyramine (QUESTRAN) 4 gram powder PLEASE SEE ATTACHED FOR DETAILED DIRECTIONS 3 Active famotidine (PEPCID) 40 mg tablet SMARTSI Tablet(s) By Mouth Every Evening [address] (CYMBALTA) 60 mg capsule SMARTSI Capsule(s) By Mouth Daily 3 Active buPROPion XL (WELLBUTRIN XL) 150 mg tablet SMARTSI Tablet(s) By Mouth Every Morning 3 Active potassium citrate 15 mEq tablet extended release SMARTSI Tablet(s) By Mouth Twice Daily 3 Active Active Problems Problem Noted Date Diagnosed Date 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 Liver lesion 04/17/2017 Hepatic encephalopathy 08/12/2016 Depression 05/12/2016 Crohn's disease 04/14/2016 Recurrent nephrolithiasis 04/14/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 04/14/2016 Immunizations Name Administration Dates Next Due Covid-19, Pfizer, mRNA, [place] valent, PF 30 mcg/0.3 mL dose (for ages 12 and older) 07/26/2020,07/05/2020,07/03/2020 Hepatitis A Vaccine, Adult Dosage 12/16/2016, Hepatitis B Vaccine, Dialysi s Patient Dosage 05/20/2016 Hepatitis B adult (ENGERIX-B/RECOMBIVAX HB ADULT) vaccine 1 mL IM 12/16/2016,08/12/2016,06/23/2016 Influenza, High Dose Seasona l, Preservative Free 02/01/2019 Influenza, High Dose Seasona l, Quadrivalent PF 02/07/2020 Influenza, Injectable, Quadr ivalent, Preservative Free 02/02/2018 Influenza, Trivalent, MDV, Injectable ,02/14/2010,04/22/2006,2004 Pneumococcal Conjugate Vacci ne, 13 Valent 05/20/2016 Td(Adult) Unspecified Formulation 05/21/2006 Tetanus Toxoid, Reduced Diph theria Toxoid, and Acellular Pertussis Vaccine, Adsorbed 05/20/2016 Zoster Vaccine, Live 09/20/2012 Family History Medical History Relation Name Comments Other Father Family History of colon cancer Relation Name Status Comments Father Social History Tobacco Use Types Packs/Day Years Used Date Smoking Tobacco: Never Smokeless Tobacco: Never Tobacco Cessation:Counseling Given: Not Answered Comments:: Alcohol Use Standard Drinks/Week Comments No 0 (1 standard drink = 0.6 oz pure alcohol) past history of drinking 2-3 beers per day Sex and Gender Information Value Date Recorded Sex Assigned at Male 04/06/2023 3:08 PM EST Legal Sex Male 7:14 PM EDT Gender Identity Not on file Sexual Orientation Not on file Last Filed Vital Signs Vital Sign Reading Time Taken Comments Blood Pressure 125/82 11/09/2023 11:29 AM EDT Pulse 68 11/09/2023 11:29 AM EDT Temperature 36.6 ??C (97.9 ??F) 11/09/2023 11:29 AM E DT Respiratory Rate 20 11/09/2023 11:29 AM EDT Oxygen Saturation 97% 11/09/2023 11:29 AM EDT Inhaled Oxygen Concentration - - Weight 69.2 kg (152 lb 8.9 oz) 11/09/2023 11:29 AM EDT Height 180.3 cm (5' 11 ) 02/07/2020 11:50 AM EDT Body Mass Index 21.28 02/07/2020 11:50 AM EDT Plan of Treatment Health Maintenance Due Date Last Done Comments Cologuard 1950 Colon Cancer Screening 1950 Colonoscopy 1950 FOBT / Fit Test 1950 PTH 1950 Sigmoidoscopy 1950 Pneumococcal Vaccine: 65+ Ye ars (2 of 2 - PPSV23 or PCV20) 07/15/2016 05/20/2016 25 Hydroxy / Vitamin D 05/12/2017 05/12/2016 Phosphorus 05/12/2017 05/12/2016 Urine Microalbumin 04/11/2022 04/11/2021, 0 01/14/2021, 05/31/2019, Additional history exists COVID-19 Vaccine (2023-2 5 season) 2024 06/18/2023, 12/02/2022, 03/11/2022, Additional history exists Influenza Vaccine (#1) 2024 , 03/11/2022, 03/04/2022, Additional history exists Alcohol/Substance Use Screening 05/04/2024 Depression Evaluation 05/04/2024 Health Care Proxy Review 05/04/2024 Social Drivers of Health Emily ual Screening 05/04/2024 Basic Metabolic Panel 05/25/2024 11/23/2023 , 04/02/2023, 09/25/2022, Additional history exists Hemoglobin 11/22/2024 11/23/2023, 04/0 06/2023, 04/02/2023, Additional history exists DTaP,Tdap,and Td Vaccines (3 - Td or Tdap) 05/20/2026 05/20/2016, 05/20/2015, 05/21/2006 Hepatitis B Vaccines Completed 12/16/2016, 08/12/2016, 06/23/2016, Additional history exists Hepatitis C Screening Completed 06/01/2017, 017 Mammogram Discontinued 12/23/2018, 09/02/2018 Zoster Vaccines Completed 11/28/2020, 08/03, 09/20/2012 RSV Vaccine (60+ years old a nd patients) Completed 06/18/2023 Procedures * Due to [place] law, this organization might not be sharing negative HIV tests. Procedure Name Priority Date/Time Associated Diagnosis Comments LIVER PRE EXTERNAL PANEL Routine 11/23/2023 1:30 PM EDT COMPREHENSIVE METABOLIC PANEL Routine 04/02/2023 5:06 PM EST Other cirrhosis of liver (HCC) HEPATITIS C ANTIBODY W/REFLEX TO HCV RNA, QUANTITATIVE PCR Routine 06/01/2017 11:17 AM EST Cryptogenic cirrhosis VITAMIN D, 25-HYDROXY, TOTAL, IMMUNOASSAY Routine 05/12/2016 1:54 PM EST PHOSPHORUS Routine 05/12/2016 1:54 PM EST from Last 3 Months or Most Recently Relevant to Health Maintenance Results * Due to [place] law, this organization might not be sharing negative HIV tests. * LIVER PRE EXTERNAL PANEL (11/23/2023 1:30 PM EDT) Sodium 143 mmol/L [facility] Potassium 4.1 [facility] Chloride 110 [facility] Carbon Dioxide 21 [facility] Glucose 85 [facility] BUN 22 mg/dL [facility] Creatinine 1.60 mg/dL [facility] Calcium 9.0 mg/dL [facility] Total Protein 6.1 g/dL [facility] Albumin 3.6 g/dL [facility] Bilirubin, Total 1.8 mg/dL [facility] Alkaline Phosphatase 66 U/L [facility] AST 25 U/L [facility] ALT 17 U/L [facility] WBC 3.4 10*3/uL [facility] Hgb 12.7 [facility] Hematocrit 38.9 % [facility] Platelets 91 10*3/uL [facility] INR 1.10 [facility] Alpha Fetoprotein, Tumor Marker <1.8 [facility] 11/23/2023 1:30 PM EDT us Jatin Daniels MD LAB BLOOD ORDERABLES Final Re sult [facility] [address] [place] [address] * (ABNORMAL) Comprehensive Metabolic Panel (04/02/2023 5:06 PM EST) NA 143 135 - 145 mmol/L 04/02/2023 5:42 PM EST [facility] K 4.1 3.5 - 5.3 mmol/L 04/02/2023 5:42 PM EST [facility] Cl 113(H) 97 - 110 mmol/L 04/02/2023 5:42 PM EST [facility] CO2 22(L) 24 - 32 mmol/L 04/02/2023 5:42 PM EST [facility] Anion Gap 8 5 - 15 04/02/2023 5:42 PM EST [facility] Glucose 84 70 - 99 mg/dL 04/02/2023 5:42 PM EST [facility] Creatinine 2.03(H) 0.60 - 1.30 mg/dL 04/02/2023 5:42 PM EST [facility] Calcium 9.2 8.7 - 10.7 mg/dL 04/02/2023 5:42 PM EST [facility] Total Protein 6.4 6.0 - 8.0 g/dL 04/02/2023 5:42 PM EST [facility] Albumin 4.0 3.5 - 4.8 g/dL 04/02/2023 5:42 PM EST [facility] Bilirubin, Total 1.5(H) 0.3 - 1.2 mg/dL 04/02/2023 5:42 PM EST [facility] Alkaline Phosphatase 55 30 - 115 U/L 04/02/2023 5:42 PM EST [facility] AST 22 10 - 40 U/L 04/02/2023 5:42 PM EST [facility] ALT 21 10 - 40 U/L 04/02/2023 5:42 PM EST [facility] BUN 32(H) 7 - 23 mg/dL 04/02/2023 5:42 PM EST [facility] eGFR 34(L) >=60 mL/min/1 .73m2 04/02/2023 5:42 PM EST [facility] Comment:The estimated glomer ular filtration rate (eGFR) is calculated using a new formula developed by the NKF-ASN task force to eliminate race-based correction factors. The new formula uses serum/plasma creatinine, age, and gender to determine eGFR. A value below 60mls/min might indicate kidney disease and will be flagged. For additional information, see Racheal et al, Am J Kidney Dis. 2021;79(2):268- 288, A Unifying Approach for GFR estimation: Recommendations of the NKF-ASN Task Force on Reassessing the Inclusion of Race in Diagnosing Kidney Disease . Blood Structure of peripheral vein / Unknown Venipuncture / Unknown 04/02/2023 5:06 PM EST 04/02/2023 5:11 PM EST us Jatin Daniels MD LAB BLOOD ORDERABLES Final Re sult [facility] [address] [place] [address], * Hepatitis C Antibody w/Reflex to HCV RNA, Quantitative PCR (06/01/2017 11:17 AM EST) Pathologist [facility] [place] Hepatitis C Antibody NON-REACT BELLA NON-REACT BELLA 06/01/2017 8:11 PM EST [facility] Signal To Cut-Off 0.02 <1.00 06/01/2017 8:11 PM EST [employer] [facility] Blood specimen (specimen) Structure of peripheral vein / Unknown Venipuncture / Unknown 06/01/2017 11:17 AM EST 06/01/2017 11:57 AM EST Narrative [facility] - 06/01/2017 8:11 PM EST [facility] Received Date: Jatin Daniels MD LAB BLOOD ORDERABLES Final Re sult [facility] [address] [facility] 3rd Floor, [place] [address], [employer] [facility] [address], [place] [address], * Vitamin D, 25-Hydroxy, Total, Immunoassay (05/12/2016 1:54 PM EST) Pathologist [facility] [place] Calcidiol+ercalci diol 34 30 - 100 ng/mL [facility] Comment: Vitamin D Status ? 25-OH Vitamin D: Deficiency: ?<20 ng/mL Insufficiency: ? 20 - 29 ng/mL Optimal: ? > or = 30 ng/mL For 25-OH Vitamin D testing on patients on D2-supplementation and patients for whom quantitation of D2 and D3 fractions is required, the QuestAssureD(TM) 25-OH VIT D, (D2,D3), LC/MS/MS is recommended: order code 40722 (patients >2yrs). For more information on this test, go to: http://education.LocalOn/faq/THA609 (This link is being provided for informational/educational purposes only.) 05/12/2016 1:54 PM EST 05/12/2016 2:30 PM EST us Florentin Erickson MD LAB BLOOD ORDERABLES Final Result [facility] [address] [facility] 3rd Floor, [place] [address], * Phosphorus (05/12/2016 1:54 PM EST) Phosphorus Blood 3.7 2.5 - 4.5 mg/dL [facility] 05/12/2016 1:54 PM EST 05/12/2016 2:29 PM EST us Florentin Erickson MD LAB BLOOD ORDERABLES Final Result [facility] [address] [place] [address], from Last 3 Months or Most Recently Relevant to Health Maintenance Insurance MEDICARE RR RETIREES [facility] SUPP MEDICARE RR RETIREES [facility] SUPP Advance Directives Documents on File Type Date Recorded Patient Database Programmer Expl [facility] Care Proxy 05/23/2016 12:00 AM [facility] Proxy Care Teams Front Desk Attendant Relationship Specialty Start Date End Date Unknown, Doctor Unknown Unknown, PRAKASH PCP - General 04/02/23
--- OUTSIDE RECORDS SUMMARY | 2024-06-06 16:59 | XMS_ITS | Encounter Summary ---
Author Organization [facility] Address [address] [facility] [address] [place] [address] Phone Care Team Providers Care Security Sergeant Name Role Phone Curt Davis MD Primary Care Provider [phone] Encounter Details Date Type Department Care Team ([facility] Contact Info) Description 05/08/2021 Telephone [facility] [address] [facility] [address] [place] [address] Yoly Leyva Social History Tobacco [...] Visit [facility] [address] [place] [address] Jostin Gorman MD [address] [facility] [address] [place] [phone] documented as of this encounter Visit Diagnoses Not on filedocumented in this encounter Care Teams Security Sergeant Relationship Specialty Start Date End Date Curt Davis MD [address] [place] [phone] PCP - General 05/14/20 documented as of this encounter
--- OUTSIDE RECORDS SUMMARY | 2024-06-06 16:59 | XMS_ITS | Referral Summary ---
Author Organization [facility] Address [address] [place] [address] Care Team Providers Care Nursing Care Attendant Name Role Phone Unknown, Doctor Primary [...] Administration Dates Next Due Covid-19, Pfizer, mRNA, [place] valent, PF 30 mcg/0.3 mL dose (for [...] Vaccine, Adsorbed 05/20/2016 Zoster Vaccine, Live 09/20/2012 Social History Tobacco Use Types Packs/Day [...] 02/07/2020 11:50 AM EDT Plan of Treatment Not on file Procedures * Due to [place] i[place]ollo law, this organization might not be sharing [...] to Health Maintenance Results * Due to [place] i[place] law, this organization might not be sharing [...] [facility] Bilirubin, Total 1.8 mg/dL [facility]UEST HISTORY CL[facility] Alkaline Phosphatase 66 U/L [facility] AST 25 U/L [facility] ALT 17 U/L [facility] WBC 3.4 10*3/uL [facility] Hgb 12.7 [facility] Hematocrit 38.9 % [facility] Platelets 91 10*3/uL [facility] INR 1.10 [facility] Alpha Fetoprotein, Tumor Marker <1.8 [facility] 11/23/2023 1:30 PM EDT us Jatin Daniels MD LAB BLOOD ORDERABLES Final Re sult [facility] [address] [place] [address] * (ABNORMAL) Comprehensive Metabolic Panel (04/02/2023 5:06 PM EST) NA 143 135 - 145 mmol/L 04/02/2023 5:42 PM EST [facility] K 4.1 3.5 - 5.3 mmol/L 04/02/2023 5:42 PM EST [facility] Cl 113(H) [...] - 4.8 g/dL 04/02/2023 5:42 PM EST [facility] Bilirubin, Total 1.5(H) 0.3 - 1.2 mg/dL 04/02/2023 5:42 PM EST [facility] Alkaline Phosphatase 55 30 - 115 U/L 04/02/2023 5:42 PM EST [facility] AST 22 10 - 40 U/L 04/02/2023 5:42 PM EST [facility] ALT 21 10 - 40 U/L 04/02/2023 5:42 PM EST [facility] BUN 32(H) 7 - 23 mg/dL 04/02/2023 5:42 PM EST [facility] eGFR 34(L) >=60 mL/min/1 .73m2 04/02/2023 5:42 PM EST [email or web address] Comment:The estimated glomer ular [...] MD LAB BLOOD ORDERABLES Final Re sult [facility] [address] [place] [address], [place] * Hepatitis C Antibody w/Reflex to HCV RNA, Quantitative PCR (06/01/2017 11:17 AM EST) Hepatitis C Antibody NON-REACT BELLA NON-REACT BELLA 06/01/2017 8:11 PM EST [employer] [facility] Signal To Cut-Off 0.02 <1.00 06/01/2017 8:11 PM EST [employer] [facility] Blood specimen (specimen) Structure of peripheral vein / Unknown Venipuncture / Unknown 06/01/2017 11:17 AM EST 06/01/2017 11:57 AM EST Narrative [facility] - 06/01/2017 8:11 PM EST [facility] Received Date: us Jatin Daniels MD LAB BLOOD ORDERABLES Final Re sult [facility] 200 [facility] [address] [facility], [place] [address], [employer] [facility] [address], [place] [address], * Vitamin D, 25-Hydroxy, Total, Immunoassay (05/12/2016 1:54 PM EST) Pathologist [facility] Calcidiol+ercalci diol 34 30 - 100 ng/mL [facility] Comment: Vitamin D Status ? 25-OH Vitamin D: Deficiency: ?<20 ng/mL Insufficiency: ? 20 - 29 ng/mL Optimal: ? > or = 30 ng/mL For 25-OH Vitamin D testing on patients on D2-supplementation and patients for whom quantitation of D2 and D3 fractions is required, the QuestAssureD(TM) 25-OH VIT D, (D2,D3), LC/MS/MS is recommended: order code [id number] (patients >2yrs). For more information on this test, go to: http://education.Mingly/faq/ADV530 (This link is being provided for informational/educational purposes only.) 05/12/2016 1:54 PM EST 05/12/2016 2:30 PM EST us Florentin Erickson MD LAB BLOOD ORDERABLES Final Result [facility] [address] [facility] 3rd Floor, [place] [address], * Phosphorus (05/12/2016 1:54 PM EST) Phosphorus Blood 3.7 2.5 - 4.5 mg/dL [facility] 05/12/2016 1:54 PM EST 05/12/2016 2:29 PM EST us Florentin Erickson MD LAB BLOOD ORDERABLES Final Result Performing Organization Address City/[facility] Co de Phone Number [facility] [address] [place] [address] from Last 3 Months or Most Recently Relevant to Health Maintenance Insurance MEDICARE RR RETIREES [facility] SUPP MEDICARE [place] [address] [place] [address] SUPP Advance Directives Documents on File Type Date Recorded Patient Building Maintenance Custodian Expl [facility] Proxy 05/23/2016 12:00 AM [facility] Proxy Care Teams Nursing Care Attendant Relationship Specialty Start Date End Date Unknown, Doctor Unknown Unknown, PRAKASH PCP - General 04/02/23
--- OUTSIDE RECORDS SUMMARY | 2024-06-06 16:59 | XMS_ITS | Encounter Summary ---
Author Organization [facility] Address [address] [address] Phone Care Team Providers Care Drapery Supervisor Name Role Phone Curt Davis MD Primary Care Provider [phone] Encounter Details Date Type Department Care Team (Late st Contact Info) Description 06/06/2024 2:30 PM EST [facility] [address] [place] [phone] Jostin Gorman MD [address] [address] Stage 3b chronic kidney disease (HCC) (Primary Dx); Renal stone; Hypertensive renal disease Social History Tobacco Use Types Packs/Day Years [...] on file documented as of this encounter Last Filed Vital Signs Vital Sign Reading Time Taken Comments Blood Pressure 128/90 06/06/2024 2:23 PM EST Pulse 78 06/06/2024 2:23 PM EST Temperature - - Respiratory Rate - - Oxygen Saturation 97% 06/06/2024 2:23 PM EST Inhaled Oxygen Concentration - - Weight 69.9 kg (154 lb) 06/06/2024 2:23 PM EST Height - - Body Mass Index 20.89 05/23/2019 12:00 PM EST documented in this encounter Patient Instructions * Patient Instructions* Jostin Gorman MD - 06/06/2024 2:30 PM EST No NSAIDS - Do not take non-steroidal anti-inflammatory medications (NSAIDS) such as Ibuprofen (Advil, Motrin, etc), Naproxen (Aleve, etc), Celecoxib (Celebrex) or Ketoprofen. These common arthritis medications can cause permanent kidney damage or worsen your kidney damage. For mild occasional pain, Acetaminophen (Tylenol, etc) is safe for your kidneys. Sodium and Your CKD Diet: How to Spice Up Your Cooking What is sodium? Sodium is a mineral found naturally in foods and is the major part of table salt. What are the effects of eating too much sodium? When your kidneys are not healthy, extra sodium and fluid build up in your body. This can cause swollen ankles, puffiness, a rise in blood pressure, shortness of breath, and/or fluid around your heart and lungs. See the following table for suggestions on how to reduce sodium in your diet. LIMIT THE [AMOUNT OF... FOOD TO LIMIT BECAUSE OF THEIR HIGH SODIUM CONTENT ACCEPTABLE SUBSTITUTES SALT & SALT SEASONINGS Table salt Seasoning salt Garlic salt Onion salt Celery salt Lemon pepper Lite salt Meat tenderizer Bouillon cubes Flavor enhancers Fresh garlic, fresh onion, garlic powder, onion powder, black [pepper, lemon juice, low-sodium/salt-free seasoning blends, vinegar SALTY FOODS Barbecue sauce Steak sauce Soy sauce Teriaky sauce Oyster sauce Salted Snacks such as Crackers Potato chips [place] chips Pretzels Tortilla chips Nuts Popcorn Wallace seeds Homemade or low- sodium sauces and salad dressings; Vinegar, dry mustard, unsalted popcorn, pretzels, tortilla or corn chips Cured Foods Ham Salt pork Dobson Sauerkraut Pickles, pickle relish Lox & Aranda Olives Fresh beef, veal, pork, poultry, fish, eggs [place] MEATS Hot Dogs Cold cuts, deli meats Pastrami Sausage Corned beef Spam Low-salt deli meats PROCESSED FOODS Buttermilk Cheese Canned: Soups Tomato products Vegetable juices Canned vegetables Convenience Foods such as: TV Dinners Canned raviolis [place] Macaroni & Cheese Spaghetti Frozen prepared foods Fast foods Natural cheese (1-2 oz Per week) Homemade or amy,1- sodium soups, canned food without added salt Homemade casseroles without added salt, made with fresh or raw vegetables, fresh meat, adams, pasta, or unsalted canned vegetables Some salt or sodium is needed for body water balance. But when your kidneys lose the ability to control sodium and water balance, you may experience the following: thirst fluid gain high blood pressure discomfort during dialysis By using less sodium in your diet, you can control these problems. Hints to keep your sodium intake down Cook with herbs and spices instead of salt. (Refer to Spice Up Your Cooking section for further suggestions.) Read food labels and choose those foods low in sodium. Avoid salt substitutes and specialty low-sodium foods made with salt substitutes because they are high in potassium. When eating out, ask for meat or fish without salt. Ask for gravy or sauce on the side; these may contain large amounts of salt and should be used in small amounts . Limit use of canned, processed and frozen foods. Some information about reading labels Understanding the terms: Sodium Free - Only a trivial amount of sodium per serving. Very Low Sodium - 35 mg or less per serving. Low Sodium - 140 mg or less per serving. Reduced Sodium - Foods in which the level of sodium is reduced by 25%. Light or Lite in Sodium - Foods in which the sodium is reduced by at least 50% . Simple rule of thumb : If salt is listed in the first five ingredients, the item is probably too high in sodium to use. All food labels now have milligrams (mg) of sodium listed. Follow these steps when reading the sodiwn information on the label: 1. Know how much sodium you are allowed each day. Remember that there are 1000 milligrams (mg) in 1gram. For [id number], if your diet prescription is 2 grams of sodium , your limit is 2000 milligrams per day. Consider the sodium value or other food to be eaten during the day. 2. Look at the package label. Check the serving size. Nutrition values are expressed per fransico g. How does this compare to your total daily allowance? If the sodium level is 500 mg or more per serving, the item is not a good choice. 3. Compare labels of similar products. Select the lowest sodium level for the same serving size. How to Spice Up Your Cooking Giving up salt does not mean giving up flavor. Learn to season your food with herbs and spices. Be creative and experiment for a new and exciting flavor. What kinds of spices and herbs should I use instead of salt to add flavor? Try the following spices with the foods listed. Allspice: Use with beef, fish, beets, cabbage, canots, peas, fruit. Basil: Use with beef, pork, most vegetables. [place]: Use with beef, pork, most vegetables. Lafe: Use with beef, pork, green beans, cauliflower, cabbage, beets, asparagus, and in dips and marinades. Cardamom: Use with fruit and in baked goods. Elam: Use with beef, chicken, pork, fish, green beans, carrots and in marinades. Dill: Use with beef, chicken, green beans, cabbage, carrots, peas and in dips. Elena: Use with beef, chicken, pork, green beans, cauliflower and eggplant. Marjoram: Use with beef, chicken, pork, green beans, cauliflower and eggplant. Colleen: Use with chicken, pork, cauliflower, peas and in marinades. Thyme: Use with beef, chicken, pork, fish, green beans, beets and carrots. Floyd: Use with chicken, pork, eggplant and in dressing. Tarragon: Use with fish, chicken, asparagus, beets, cabbage, cauliflower and in marinades. Tips for cooking with herbs and spices Purchase spices and herbs in small amounts . When they sit on the shelf for years they lose their flavor. Use no more than ?? teaspoon of dried spice (?? of fresh) per pound of meat. Add ground spices to food about 15 minutes before the end of the cooking period. Add whole spices to food at least one hour before the end of the cooking period. Combine herbs with oil or butter, set for 30 minutes to bring out their flavor, then brush on foodswhile they cook, or brush meat with oil and sprinkle herbs one hour before coolcing. Crush dried herbs before adding to foods. Can I use salt substitutes? Caution! If you are told to limit potassium in your diet, be very cautious about using salt substitutes because most of them contain some form of potassium. Check with your doctor or dietitian beforeusing and salt substitute. [place] and create your own seasoning containing those spices that you like. If you would like to become a volunteer and find out more about what's happening where you live, contact your local [facility] Affiliate. Blood pressure monitoring education: Monitor home blood pressure values after sitting for 5 minutes with back and arm support. Keep a log. Bring your log and blood pressure cuff to your next visit. documented in this encounter Plan of Treatment Upcoming Encounters Date Type Department Care Team (Late st Contact Info) Description 12/05/2024 2:30 PM EDT Office Visit [facility] [address] [place] [phone] Jostin Gorman MD [address] [facility] [address] [place] [address] Scheduled Orders Name Type Priority Associated Diagnoses Orde r Schedule PTH, Intact Lab Routine Stage 3b chronic kidney disease (HCC) Renal stone Hypertensive renal disease Expected: 06/13/2024, Expires: 07/04/2025 Renal Function Panel Lab Routine Stage 3b chronic kidney disease (HCC) Renal stone Hypertensive renal disease Expected: 06/13/2024, Expires: 07/04/2025 Urinalysis with microscopic Lab Routine Stage 3b chronic kidney disease (HCC) Renal stone Hypertensive renal disease Expected: 06/13/2024, Expires: 07/04/2025 Urine Albumin / Creatinine Ratio Lab Routine Stage 3b chronic kidney disease (HCC) Renal stone Hypertensive renal disease Expected: 06/13/2024, Expires: 07/04/2025 Urine Culture Lab Routine Stage 3b chronic kidney disease (HCC) Renal stone Hypertensive renal disease Expected: 06/13/2024, Expires: 07/04/2025 Protein, Total, Random Urine w/Creatinine (Protein/Creat Ratio) Lab Routine Stage 3b chronic kidney disease (HCC) Renal stone Hypertensive renal disease Expected: 06/13/2024, Expires: 07/04/2025 Vitamin D 25 Hydroxy Lab Routine Stage 3b chronic kidney disease (HCC) Renal stone Hypertensive renal disease Expected: 06/13/2024, Expires: 07/04/2025 CBC Lab Routine Stage 3b chronic kidney disease (HCC) Renal stone Hypertensive renal disease Expected: 06/13/2024, Expires: 07/04/2025 Phosphorus Lab Routine Stage 3b chronic kidney disease (HCC) Renal stone Hypertensive renal disease Expected: 06/13/2024, Expires: 07/04/2025 Magnesium Lab Routine Stage 3b chronic kidney disease (HCC) Renal stone Hypertensive renal disease Expected: 06/13/2024, Expires: 07/04/2025 Albumin Lab Routine Stage 3b chronic kidney disease (HCC) Renal stone Hypertensive renal disease Expected: 06/13/2024, Expires: 07/04/2025 Calcium Lab Routine Stage 3b chronic kidney disease (HCC) Renal stone Hypertensive renal disease Expected: 06/13/2024, Expires: 07/04/2025 documented as of this encounter Procedures Procedure Name Priority Date/Time Associated Diagnosis Comments DIFF SLIDE REVIEW (HC) Routine 06/06/2024 3:47 PM EST CBC AND DIFFERENTIAL Routine 06/06/2024 3:47 PM EST documented in this encounter Results * Diff Slide Review (06/06/2024 3:47 PM EST) Slide Review VERIFIED See ord er comments 06/06/2024 3:47 PM EST 06/06/2024 3:47 PM EST us Jostin Gorman MD LAB [id number] SOLICITED RESULTS Final Result [place] See order [place] [address] * (ABNORMAL) CBC and Differential (06/06/2024 3:47 [...] order comments [place] [address] documented in this encounter Visit Diagnoses Diagnosis Stage 3b chronic kidney disease (HCC)- Primary Renal stone Hypertensive renal disease documented in this encounter Care Teams Drapery Supervisor Relationship Specialty Start Date End Date Curt Davis MD [address] [place] [address] PCP - General 05/14/20 documented as of this encounter
[2024-06-06 17:07] LABS: Parathyroid Hormone Intact 120.7 pg/mL (8.7-77.1)
[2024-06-06 17:11] LABS: Albumin Level 3.9 g/dL (3.5-5.0); Anion Gap 10 (12-20); Blood Urea Nitrogen 25 mg/dL (9-16); Calcium 9.2 mg/dL (8.4-10.2); Carbon Dioxide 28 mmol/L (22-29); Chloride 110 mmol/L (96-108); Estimated Glomerular Filt Rate 43; Magnesium 1.8 mg/dL (1.6-2.6); Phosphorus 3.5 mg/dL (2.7-4.5); Potassium 4.2 mmol/L (3.3-5.1); Sodium 144 mmol/L (135-145)
[2024-06-06 17:26] LABS: Vitamin D 25-OH Total 39.7 ng/mL (>30)
== END 2024-06-06 15:24 | disposition home or self-care (01) ==
LOC: HO.LAB 15:23
PROVIDERS: PCP Family Medicine; Visit Provider Internal Medicine Nephrology
DX: N18.32 Chronic kidney disease, stage 3b (principal); N20.0 Calculus of kidney; I12.9 Hypertensive chronic kidney disease with stage 1 through stage 4 chronic kidney disease, or unspecified chronic kidney disease
CPT/HCPCS: 36415; 80051; 82040; 82306; 82310; 82565; 83735; 83970; 84100; 84520; 85025

== ENCOUNTER 2024-08-05 10:07 | Outpatient (REF) | payer MEDICARE, OTHER, SELFPAY ==
--- NOTE | ~2024-08-05 | US_ITS ---
CLINICAL HISTORY: Cirrhosis of liver US abdomen complete with duplex and color Doppler Comparison: None Findings: Midline structures obscured by bowel gas. Varices are seen at the level of the pancreas. Liver diminutive in sizewith coarse echotexture Right lobe 10.0 cm length. No focal hepatic masses. Common duct 4.0 mm diameter. Physiologic distention of the gallbladder. Cholelithiasis. Gallbladder sludge with sludge balls. Equivocal nonmobile gallstone.Mild gallbladder wall thickening No pericholecystic fluid. No sonographic Meier sign. Main portal vein antegrade. Right kidney normal size, 8.9 cm in length. Normal cortical width and echotexture. No solid or cystic renal masses. Mild pelvicaliectasis. Left kidney normal in size10.2 cm in length. Normal cortical width and echotexture. Nephrolithiasis with caliceal stones lower pole measuring 2 mm, 2 mm, midpole measuring 6 mm and 4 mm. Lower pole renal cortical cyst measuring 1.2 x 1.0 x 1.0 cm. No evidence of obstructive uropathy. Spleen measures 16.1 cm. No splenic masses. Perisplenic varices No ascites. No lymphadenopathy. Impression: 1. Cirrhosis with evidence of portal hypertension. Bowel gas and varices obscures midline structures. 2. Cholelithiasis and gallbladder wall thickening without sonographic Meier's sign. Equivocal nonmobile gallstone. Hepatobiliary scan may help exclude cystic duct obstruction. Gallbladder wall thickening may be the sequela of a hypoalbuminemic state. 3. Nephrolithiasis on the left without evidence of obstructive uropathy. Pelvicaliectasis on the right. Renal cortical cyst left kidney has benign features. This document has been electronically signed by: Brad Randle MD on 08/05/2024 15:19:57
--- OUTSIDE RECORDS SUMMARY | 2024-08-05 11:29 | XMS_ITS | Patient Health Record ---
Author Organization [facility] Address [address] [place] [address] Care Team Providers Care Vocational Nursing Instructor Name Role Phone Radhika Chacko Primary Care Provider Sameer Salcido [phone] Allergies No Known Allergies Reason For Referral No Information Medications Medication SIG (Take, Route, Frequency, Duration) Notes Start Date End Date Status Cyanocobalamin 1000 MCG/ML INJECT 1ML INTRAMUSCULARLY ONCE A MONTH Injection once a month Active buPROPion HCl ER (SR) 150 MG TAKE 1 TABLET BY MOUTH TWICE A DAY Orally Once a day Active Potassium Citrate Ac tive Calcium Active Cholecalciferol Acti ve lamoTRIgine 100 MG TAKE 1 TABLET BY JANINA TH EVERY DAY Oral for 90 Not-Taking Mirtazapine Not-Taki ng Tamsulosin HCl 0.4 MG Oral for 90 Days Active Famotidine 40 MG TAKE 1 TABLET BY JANINA TH EVERY DAY IN THE EVENING for 90 Active DULoxetine HCl 30 MG Oral for 30 Active Vitamin D3 Active Propranolol HCl 40 MG 1 tablet Orally On ce a day Active Immunizations Vaccine Route Administration Date Status Comme nts Influenza Unknown 12/02/2018 Administered Influenza Unknown 02/15/2019 Administered Influenza Unknown 02/02/2020 Administered Influenza Unknown 01/02/2022 Administered Influenza Unknown 02/24/2023 Administered Social History Tobacco Use: Social History Observation Description Date Details (start date - stop date) Never Smoker NA - NA Tobacco Use/Smoking Question Answer Notes Patient is a nonsmoker Alcohol Screen Question Answer Notes Did you have a drink containing alcohol in the p ast year? No Points 0 Interpretation Negative Section Notes: Nonsmoker; he describes at [facility] 2-4 beers per day for many years, but now describes no alcohol use since 2016 Nonsmoker; he describes [facility] 2-4 beers per day for many years, but now describes no alcohol use since 2016 Nonsmoker; he describes at [facility] 2-4 beers per day for many years, but now describes no alcohol use since 2016 Nonsmoker; he describes at [facility] 2-4 beers per day for many years, but now describes no alcohol use since 2016 Nonsmoker; he describes at [facility] 2-4 beers per day for many years, but now describes no alcohol use since 2016 Nonsmoker; he describes at [facility] 2-4 beers per day for many years, but now describes no alcohol use since 2016 Nonsmoker; he describes at [facility] 2-4 beers per day for many years, but now describes no alcohol use since 2016 Nonsmoker; he describes at [facility] 2-4 beers per day for many years, but now describes no alcohol use since 2016 Problems Problem Type SNOMED Code ICD Code Onset Dates Problem Status W/U Status Risk Notes Problem 139788454 Encounter for screening for malignant neoplasm of colon (Z12.11) Active confirmed Problem History of polyp of colon (situation) (725690963) Personal history of colonic polyps (Z86.010) Active confirmed Problem Oesophageal varices without bleeding (58770699) Secondary esophageal varices without bleeding (I85.10) Active confirmed Problem Crohn (99370531) Crohn's disease of both small and large intestine with unspecified complications (K50.819) Active confirmed Problem 91527958 Other cirrhosis of liver (K74.69) Active confirmed Problem History of gastrointestinal tract bypass (407318885) Intestinal bypass and anastomosis status (Z98.0) Active confirmed Problem Duodenitis (74695236) Duodenitis (K29.80) Active confirmed Problem 974498291 History of colon polyps (Z86.010) Active confirmed Problem Cirrhotic (584334066) Cirrhosis (K74.60) Active confirmed Problem 01505046 Diarrhea, unspecified type (R19.7) Active confirmed Problem Diverticulosis of colon (693920998) Diverticulosis of colon (K57.30) Active confirmed Problem Crohn (59670484) Crohn''s diseas e of small and large intestines with complication (K50.819) Active confirmed Problem 09258520 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) Active confirmed Problem History of esophageal varices (45478134764297051) History of esophageal varices (Z87.19) Active confirmed Vital Signs Blood pressure diastolic 11 mm Hg 07/07/2024 Height 72 in 07/07/2024 Blood pressure systolic 111 mm Hg 07/07/2024 Weight 153 lbs 07/07/2024 BMI 20.75 kg/m2 07/07/2024 Encounters Encounter Location Date Provider Diagnosis [facility] [address] [place] [address] 07/07/2024 Sameer Valenzuela Crohn''s disease of small and large intestines with complication K50.819 ; Other cirrhosis of liver K74.69 ; History of colon polyps Z86.010 ; Encounter for screening for malignant neoplasm of colon Z12.11 and Secondary esophageal varices without bleeding I85.10 Assessments Encounter Date Diagnosis (ICD Code) Assessment Notes Treatment Notes Treatment Clinical Notes Section Notes 07/07/2024 Crohn''s disease of small and large intestines with complication (ICD-10 - K50.819) 07/07/2024 Other cirrhosis of liver (ICD-10 - K74.69) 07/07/2024 History of colon polyps (ICD-10 - Z86.010) 07/07/2024 Encounter for screening for malignant neoplasm of colon (ICD-10 - Z12.11) We will plan to schedule a colonoscopy for you later in 202507/07/2024 Secondary esophageal varices without bleeding (ICD-10 - I85.10) Plan Of Treatment Pending Test Test Name Order Date LIVER PROFILE 07/07/2024 CBC w DIFF 07/07/2024 OTHER REF LAB TEST - SER 12/02/2018 Prothrombin Time INR 07/07/2024 Alpha Fetoprotein 07/07/2024 US abdomen complete 07/07/2024 Future Test Test Name Order Date UPPER GI ENDOSCOPY 09/05/2020 COLONOSCOPY 09/05/2020 Next Appt Details Provider Name:Sameer Valenzuela , 07/07/2025 01:00:00 PM, [address], [address], [place], [address], Insurance Providers Payer Name Payer Address Payer Phone Subscriber Number Group Number Insured Name Patient Relationship to Insured Coverage Start Date Coverage End Date [employer] AD MEDICARE RAILFileHold Document Management software MEDICARE [address] [address] ALYSS[place] GUILLEN [phone] [id number] NEHEMIAH CUENCA Self - patient is the insured [facility] [address] [place] [address] [id number] NEHEMIAH CUENCA Self - patient is the insured 4 Medical (General) History Medical History History ICD Code Hay fever-mild Denies AR,DM,CVA,Lung disease,renal dise ase Kidney stones 2018--cystoscopy Cirrhosis--2-4 beers QD for many years-abstinent since 2015--followed by [facility] Dr. Daniels at Liver transplant clinic--has MRI's, etc--variceal bleed in 2014-banded--EGD in 02/[address] Solares was negative for any varices nor portal gastropathy--- there were changes consistent with scarring from previous banding. He is being seen regularly at [facility] by Dr. Steiner and he remains on the transplant list. They are doing his periodic liver imaging and labs. Gallstones--no sx Crohn's of SI and colon sinc e the early -colonoscopy in 02/[address] Solares was neg for active colitis, including biopsies neg. for dysplasia--there was one small polyp removed but path was not available. He had been on Remicade for many years up until June of 2018-he apparently stopped due to the fact that he was in the midst of not having a women specialist. He had nondetectable Remicade antibody levels in the summer and Fall of 2018. Depression Renal insufficiency-Dr. Gorman EGD 2020 with esophageal varices and felisa nges c/w previous banding Colonoscopy 2020 with no active Crohn's, polyps, nor dysplasia on biopsies Surgical History Surgery Date(Month/Year) Basal cell removed left side of neck Broken left ankle Ileocolectomy due to Crohn's and a fistu a 2005
--- OUTSIDE RECORDS SUMMARY | 2024-08-05 11:29 | XMS_ITS | Encounter Summary ---
Author Organization [facility] Address [address] [place] [address] Phone Care Team Providers Care Sock Ironer Name Role Phone Curt Davis MD Primary Care Provider [phone] Reason for Visit * Reason Comments Med Refill Encounter Details Date Type Department Care Team (Late st Contact Info) Description 03/22/2024 Refill [facility] [address] [facility] [address] [place] [address] Jostin Gorman MD [address] [address] Social History Tobacco Use Types [...] [facility] [address] [place] [address] Jostin Gorman MD [address] [address] documented as of this encounter Visit Diagnoses Not on filedocumented in this encounter Care Teams Sock Ironer Relationship Specialty Start Date End Date Curt Davis MD [address] [place] [address] PCP - General 05/14/20 documented as of this encounter
--- OUTSIDE RECORDS SUMMARY | 2024-08-05 11:29 | XMS_ITS | Encounter Summary ---
Author Organization [facility] Address [address] [place] [address] Phone Care Team Providers Care Senior Civil Engineer Name Role Phone Curt Davis MD Primary Care Provider [phone] Reason for Visit * Reason Comments Med Change Request Encounter Details Date Type Department Care Team (Late Contact Info) Description 02/21/2024 Refill [facility] [address] [facility] [address] [place] [address] Jostin Gorman MD [address] [address] Social History Tobacco Use Types [...] Visit [facility] [address] [place] [address] Jostin Gorman MD [address] [address] documented as of this encounter Visit Diagnoses Not on filedocumented in this encounter Care Teams Senior Civil Engineer Relationship Specialty Start Date End Date Curt Davis MD [address] [place] [address] PCP - General 05/14/20 documented as of this encounter
--- OUTSIDE RECORDS SUMMARY | 2024-08-05 11:29 | XMS_ITS | Encounter Summary ---
Author Organization [facility] Address [address] [place] [address] Phone Care Team Providers Care Electronic Test Technician Name Role Phone Curt Davis MD Primary Care Provider [phone] Reason for Visit * Reason Comments Med Refill Encounter Details Date Type Department Care Team (Late st Contact Info) Description 02/25/2024 Refill [facility] [address] [facility] [address] [place] [address] Jostin Gorman MD [address] [address] Social History Tobacco Use Types [...] Visit [facility] [address] [place] [address] Jostin Gorman MD [address] [address] documented as of this encounter Visit Diagnoses Not on filedocumented in this encounter Care Teams Electronic Test Technician Relationship Specialty Start Date End Date Curt Davis MD [address] [place] [address] PCP - General 05/14/20 documented as of this encounter
--- OUTSIDE RECORDS SUMMARY | 2024-08-05 11:29 | XMS_ITS | Encounter Summary ---
Author Organization [facility] Address [address] [facility] [address] [place] [address] Phone Care Team Providers Care Account Underwriter Name Role Phone Curt Davis MD Primary Care Provider Encounter Details Date Type Department Care Team ([facility] Contact Info) Description 05/08/2021 Telephone [facility] [address] [facility] [address] [place] [address] Yoly Leyva Social History Tobacco [...] Visit [facility] [address] [place] [address] Jostin Gorman MD [address] [facility] [address] [place] [phone] documented as of this encounter Visit Diagnoses Not on filedocumented in this encounter Care Teams Account Underwriter Relationship Specialty Start Date End Date Curt Davis MD [address] [place] [phone] PCP - General 05/14/20 documented as of this encounter
--- OUTSIDE RECORDS SUMMARY | 2024-08-05 11:29 | XMS_ITS ---
Author Organization [facility] Address [address] [place] [id number] Care Team Providers Care Web Development Manager Name Role Phone Radhika Chacko Primary Care Provider Sameer Salcido [phone] Allergies No Known Allergies REASON FOR VISIT Patient presents today for crohns Medications Medication SIG (Take, Route, Frequency, Duration) Notes Start Date End Date Status buPROPion HCl ER (SR) 100 MG TAKE 1 TABLET BY MOUTH TWICE A DAY Orally Active Cholestyramine 4 GM/DOSE 1/2 TO 1 SCOOP MIXED IN 8 OUNCES OF ORANGE JUICE OR WATER ORALLY ONCE OR TWICE A DAY FOR DIARRHEA 30 DAYS for 90 Active Famotidine 40 MG TAKE 1 TABLET BY JANINA TH EVERY EVENING for 90 Active lamoTRIgine 100 MG TAKE 1 TABLET BY JANINA TH EVERY DAY Oral for 90 Not-Taking Propranolol HCl 40 MG 1 tablet Orally Tw ice a day Active Vitamin D3 Active Iron Complex Active Advil Active DULoxetine HCl 30 MG Oral for 30 Active Cyanocobalamin 1000 MCG/ML INJECT 1ML INTRAMUSCULARLY ONCE A MONTH Injection once a month Active Multivitamin Adult - as directed Orally Active Social History Tobacco Use: Social History Observation Description Date Details (start date - stop date) Never Smoker NA - NA Tobacco Use/Smoking Question Answer Notes Patient is a nonsmoker Alcohol Screen Question Answer Notes Did you have a drink containing alcohol in the p ast year? No Points 0 Interpretation Negative Section Notes: Nonsmoker; he describes at [facility] 2-4 beers per day for many years, but now describes no alcohol use since 2015 Vital Signs Temperature 96.9 degrees Fahrenheit 07/08/19 24 Blood pressure systolic 000 mm Hg 07/08/19 24 Blood pressure diastolic 00 mm Hg 024 Height 72 in 07/08/2023 Weight 165 lb 4 oz lbs 07/08/2023 BMI 22.41 kg/m2 07/08/2023 Encounters Encounter Location Date Provider Diagnosis [facility] [address] [place] [address] 07/08/2023 Sameer Valenzuela Crohn''s disease of small and large intestines with complication K50.819 ; Other cirrhosis of liver K74.69 and History of colon polyps Z86.010 Assessments Encounter Date Diagnosis (ICD Code) Assessment Notes Treatment Notes Treatment Clinical Notes Section Notes 07/08/2023 Crohn''s disease of small and large intestines with complication (ICD-10 - K50.819) Overall, Abhishek appears well. His underlying cirrhosis and Crohn's disease both seem to be quite stable at the present time. He is not having any symptoms of active Crohn's disease at this time and is not on any specific treatment for that. His previous diarrhea has seemingly resolved and he did not need the cholestyramine. We did review that he can certainly use cholestyramine on a p.r.n. basis if diarrhea does become problematic again. Given his altered anatomy from his surgery I suspect he may have some intermittent bile-induced diarrhea. We did review that he'll be due for a followup colonoscopy in 2025 as well. His liver disease seems to be quite stable the present time without any sign of decompensation based on his examination and laboratories. I did advise him to continue followup with Dr. Daniels for his periodic laboratories and ultrasound. I did advise him to avoid all NSAIDs in regard to his underlying history of portal hypertension. If things remain stable I will plan to see Abhishek one year for a followup visit. I advised him to certainly call prior to that if he has any problems or questions I can be of assistance with. Thank you again for allowing me to participate in Abhishek's care. I shall continue to keep you advised of his progress. 07/08/2023 Other cirrhosis of liver (ICD-10 - K74.69) Overall, Abhishek appears well. His underlying cirrhosis and Crohn's disease both seem to be quite stable at the present time. He is not having any symptoms of active Crohn's disease at this time and is not on any specific treatment for that. His previous diarrhea has seemingly resolved and he did not need the cholestyramine. We did review that he can certainly use cholestyramine on a p.r.n. basis if diarrhea does become problematic again. Given his altered anatomy from his surgery I suspect he may have some intermittent bile-induced diarrhea. We did review that he'll be due for a followup colonoscopy in 2025 as well. His liver disease seems to be quite stable the present time without any sign of decompensation based on his examination and laboratories. I did advise him to continue followup with Dr. Daniels for his periodic laboratories and ultrasound. I did advise him to avoid all NSAIDs in regard to his underlying history of portal hypertension. If things remain stable I will plan to see Abhishek one year for a followup visit. I advised him to certainly call prior to that if he has any problems or questions I can be of assistance with. Thank you again for allowing me to participate in Abhishek's care. I shall continue to keep you advised of his progress. 07/08/2023 History of colon polyps (ICD-10 - Z86.010) Overall, Abhishek appears well. His underlying cirrhosis and Crohn's disease both seem to be quite stable at the present time. He is not having any symptoms of active Crohn's disease at this time and is not on any specific treatment for that. His previous diarrhea has seemingly resolved and he did not need the cholestyramine. We did review that he can certainly use cholestyramine on a p.r.n. basis if diarrhea does become problematic again. Given his altered anatomy from his surgery I suspect he may have some intermittent bile-induced diarrhea. We did review that he'll be due for a followup colonoscopy in 2025 as well. His liver disease seems to be quite stable the present time without any sign of decompensation based on his examination and laboratories. I did advise him to continue followup with Dr. Daniels for his periodic laboratories and ultrasound. I did advise him to avoid all NSAIDs in regard to his underlying history of portal hypertension. If things remain stable I will plan to see Abhishek one year for a followup visit. I advised him to certainly call prior to that if he has any problems or questions I can be of assistance with. Thank you again for allowing me to participate in Abhishek's care. I shall continue to keep you advised of his progress. 07/08/2023 Other Repeat colonoscopy in 2025 Continue your liver follow up at [facility] with Dr. Daniels Overall, Abhishek appears well. His underlying cirrhosis and Crohn's disease both seem to be quite stable at the present time. He is not having any symptoms of active Crohn's disease at this time and is not on any specific treatment for that. His previous diarrhea has seemingly resolved and he did not need the cholestyramine. We did review that he can certainly use cholestyramine on a p.r.n. basis if diarrhea does become problematic again. Given his altered anatomy from his surgery I suspect he may have some intermittent bile-induced diarrhea. We did review that he'll be due for a followup colonoscopy in 2025 as well. His liver disease seems to be quite stable the present time without any sign of decompensation based on his examination and laboratories. I did advise him to continue followup with Dr. Daniels for his periodic laboratories and ultrasound. I did advise him to avoid all NSAIDs in regard to his underlying history of portal hypertension. If things remain stable I will plan to see Abhishek one year for a followup visit. I advised him to certainly call prior to that if he has any problems or questions I can be of assistance with. Thank you again for allowing me to participate in Abhishek's care. I shall continue to keep you advised of his progress. Plan Of Treatment Treatment Notes Assessment Notes Other Repeat colonoscopy in 2025 Continue your liver follow up at [facility] with Dr. Daniels Next Appt Details Follow Up: 1 Year, Reason: Provider Name:Sameer Valenzuela , 07/07/2025 01:00:00 PM, [address] [place] [address], [address], [place], [address], Progress Notes * ABHISHEK CUENCA PDOB:[birth year] (73 yo M)Acc No.[id number]:07/08/2023 Progress Notes Patient:?JOELLEN, ABHISHEK P Provider:?Sameer Valenzuela MD :1950???Age:72 Y???Sex:Male Jonathan e:07/08/2023 Address:[address] [place], [place] [id number] Pcp:Radhika Chacko Subjective: * Chief Complaints: * ???Patient presents today fo r crohns * HPI: ???incontinence:? I saw Abhishek in followup today in regard to his underlying history of Crohn's disease, cirrhosis, and personal history of tubular adenomas of the colon. ?Since I last saw Abhishek in May of 2022 he reports that things have been stable and he has been feeling fairly well. He does continue to be followed at [facility] with Dr. Daniels about every 6 months or so. The last correspondence I have from Dr. Daniels in October of 2022 describes that things were stable from his cirrhosis standpoint and he remained active on the transplant list. Dr. Daniels continues to order his surveillance laboratories and ultrasound. Abhishek denies any signs of jaundice, increasing abdominal girth, edema, significant fatigue, pruritus, nor confusion. He enjoys a good appetite, without any significant heartburn or dysphagia. He describes that his bowel movements have been regular and without any signs of melena nor hematochezia. He denies any abdominal pains nor unintentional weight loss. ?His previous diarrhea that he had described last year seemingly resolved on its own. I had given him a prescription for cholestyramine to try in regard to diarrhea last year, but he ultimately did not use that and his bowel movements have been very stable. I had also given him a prescription for famotidine to use last year in regard to his history of esophageal varices but he also has not been using that. ?Most recent labs available from September of 2022 revealed normal electrolytes, total bilirubin 1.6, AST 34, ALT 28, alkaline phosphatase 56, hemoglobin 14.6, platelets 115,000, and an INR of 1.1. An abdominal ultrasound from 2021 revealed evidence of cirrhosis, gallstones, and splenomegaly. There was no evidence of any ascites, portal vein thrombosis, or liver mass. Abhishek does describe that he did see Dr. Daniels toward the latter part of 2022. * ROS:?General/Constitutional:?Change in appetite?denies.?Chills?denies.?Fatigue?denies.?Ophthalmologic:?Comments?all negative.?ENT:?Comments?all negative.?Respiratory:?hemoptysis?denies.?Cough?denies.?Cardiovascular:?Chest pain?denies.?Orthopnea?denies.?Gastrointestinal:?Comments?See HPI for details.?Genitourinary:?Hematuria?denies.?Dysuria?denies.?Musculoskeletal:?Painful joints?denies.?Weakness?denies.?Skin:?Itching?denies.?Rash?denies.?Neurologic:?Headache?denies.?Seizures?denies.?Psychiatric:?Comments?all negative.? * Medical History:? 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 * Family History:?Father: dece ased, Colon cancer in his 60's, diagnosed with Colon cancer.?Mother: , diagnosed with Diabetes, HTN (hypertension).?Paternal Grand Father: Colon cancer in his 60's, diagnosed with Colon cancer.?Maternal Grand Father: Intestinal cancer .?Siblings: sister with polyps; brother had polyps that needed surgery for removal, diagnosed with Colon polyps.? Denies family hx of liver ds. * Social History:?Tobacco Use:?Tobacco Use/Smoking?Patient is a?nonsmoker.?Drugs/Alcohol:?Alcohol Screen?Did you have a drink containing alcohol in the past year??No,?Points?0,?Interpretation?Negative.?Miscellaneous:?Marital status: . Occupation: retired. ???Nonsmoker; he describes at least 2-4 beers per day for many years, but now describes no alcohol use since 2016. * Medications:?TakingbuPROPion HCl ER (SR) 100 MG Tablet Extended Release 12 Hour TAKE 1 TABLET BY MOUTH TWICE A DAY Orally Cyanocobalamin 1000 MCG/ML Solution INJECT 1ML INTRAMUSCULARLY ONCE A MONTH Injection once a monthMultivitamin Adult - Tablet as directed Orally Propranolol HCl 40 MG Tablet 1 tablet Orally Twice a dayVitamin D3 Iron Complex Advil DULoxetine HCl 30 MG Capsule Delayed Release Particles Oral Cholestyramine 4 GM/DOSE Powder 1/2 TO 1 SCOOP MIXED IN 8 OUNCES OF ORANGE JUICE OR WATER ORALLY ONCE OR TWICE A DAY FOR DIARRHEA 30 DAYS Famotidine 40 MG Tablet TAKE 1 TABLET BY MOUTH EVERY EVENING Taking buPROPion HCl ER (SR) 100 MG Tablet Extended Release 12 Hour TAKE 1 TABLET BY MOUTH TWICE A DAY Orally Taking Cyanocobalamin 1000 MCG/ML Solution INJECT 1ML INTRAMUSCULARLY ONCE A MONTH Injection once a monthTaking Multivitamin Adult - Tablet as directed Orally Taking Propranolol HCl 40 MG Tablet 1 tablet Orally Twice a dayTaking Vitamin D3 Taking Iron Complex Taking Advil Taking DULoxetine HCl 30 MG Capsule Delayed Release Particles Oral Taking Cholestyramine 4 GM/DOSE Powder 1/2 TO 1 SCOOP MIXED IN 8 OUNCES OF ORANGE JUICE OR WATER ORALLY ONCE OR TWICE A DAY FOR DIARRHEA 30 DAYS Taking Famotidine 40 MG Tablet TAKE 1 TABLET BY MOUTH EVERY EVENING Not-Taking/PRNlamoTRIgine 100 MG Tablet TAKE 1 TABLET BY MOUTH EVERY DAY Oral Not-Taking/PRN lamoTRIgine 100 MG Tablet TAKE 1 TABLET BY MOUTH EVERY DAY Oral DiscontinuedMirtazapine 30 MG Tablet TAKE 1 and 1/2 TABLET BY MOUTH EVERYDAY AT BEDTIME Orally Once a dayMedication List reviewed and reconciled with the patientDiscontinued Mirtazapine 30 MG Tablet TAKE 1 and 1/2 TABLET BY MOUTH EVERYDAY AT BEDTIME Orally Once a dayMedication List reviewed and reconciled with the patient * Allergies:?N.K.D.A.yes[Aller gies Verified] Objective: * Vitals:?Wt: 165 lb 4 oz, Ht: 72 in, BMI:22.41 Index, BP: 000/00 mm Hg, Temp: 96.9. * Examination: ???General Examination: ?GENERAL APPEARANCE:?pleasant, well nourished, well developed, in no acute distress.?EYES:?sclera non-icteric.?ORAL CAVITY:?mucosa moist.?NECK/THYROID:?no cervical lymphadenopathy, neck supple.?SKIN:?nonjaundiced, no spider angiomata.?HEART:?S1, S2 normal.?LUNGS:?clear to auscultation bilaterally.?ABDOMEN:?normal bowel sounds, no guarding or rigidity, no guarding or rigidity, no masses palpable, soft, nontender, nondistended.?EXTREMITIES:?no edema.?NEUROLOGIC:?alert and oriented.? Assessment: * Assessment: 1.?Crohn''s disease of small and large intestines with complication - K50.819 (Primary)?2.?Other cirrhosis of liver - K74.69?3.?History of colon polyps - Z86.010? Overall, Abhishek appears well. His underlying cirrhosis and Crohn's disease both seem to be quite stable at the present time. He is not having any symptoms of active Crohn's disease at this time and is not on any specific treatment for that. His previous diarrhea has seemingly resolved and he did not need the cholestyramine. We did review that he can certainly use cholestyramine on a p.r.n. basis if diarrhea does become problematic again. Given his altered anatomy from his surgery I suspect he may have some intermittent bile-induced diarrhea. We did review that he'll be due for a followup colonoscopy in 2025 as well. His liver disease seems to be quite stable the present time without any sign of decompensation based on his examination and laboratories. I did advise him to continue followup with Dr. Daniels for his periodic laboratories and ultrasound. I did advise him to avoid all NSAIDs in regard to his underlying history of portal hypertension. If things remain stable I will plan to see Abhishek one year for a followup visit. I advised him to certainly call prior to that if he has any problems or questions I can be of assistance with. Thank you again for allowing me to participate in Abhishek's care. I shall continue to keep you advised of his progress. Plan: * Treatment: * Procedure Codes:?3017F COLOR ECTAL CA SCREEN DOC [id number] BP SCR NOT PRFRM REC REASON NOS * Follow Up:?1 Year * * Sign off status: Completed true * Provider:?Sameer Valenzuela MD Date:? 024 Generated for Iza lopez/Dahlia/Al on:?08/05/2024 11:28 AM EDT History and Physical Notes * HPI (History of Present Illness) Category Sub-Category Detail Notes Category Not es incontinence I saw Abhishek in followup today in regard to his underlying history of Crohn's disease, cirrhosis, and personal history of tubular adenomas of the colon. Since I last saw Abhishek in May of 2022 he reports that things have been stable and he has been feeling fairly well. He does continue to be followed at [facility] with Dr. Daniels about every 6 months or so. The last correspondence I have from Dr. Daniels in October of 2022 describes that things were stable from his cirrhosis standpoint and he remained active on the transplant list. Dr. Daniels continues to order his surveillance laboratories and ultrasound. Abhishek denies any signs of jaundice, increasing abdominal girth, edema, significant fatigue, pruritus, nor confusion. He enjoys a good appetite, without any significant heartburn or dysphagia. He describes that his bowel movements have been regular and without any signs of melena nor hematochezia. He denies any abdominal pains nor unintentional weight loss. His previous diarrhea that he had described last year seemingly resolved on its own. I had given him a prescription for cholestyramine to try in regard to diarrhea last year, but he ultimately did not use that and his bowel movements have been very stable. I had also given him a prescription for famotidine to use last year in regard to his history of esophageal varices but he also has not been using that. Most recent labs available from September of 2022 revealed normal electrolytes, total bilirubin 1.6, AST 34, ALT 28, alkaline phosphatase 56, hemoglobin 14.6, platelets 115,000, and an INR of 1.1. An abdominal ultrasound from 2021 revealed evidence of cirrhosis, gallstones, and splenomegaly. There was no evidence of any ascites, portal vein thrombosis, or liver mass. Abhishek does describe that he did see Dr. Daniels toward the latter part of 2022. Examination Category Sub-Category Detail Notes Category Not es General Examination GENERAL APPEARANCE: pleasant , well nourished, well developed, in no acute distress HEAD: EYES: sclera non-icteric EARS: NOSE: THROAT: NECK/THYROID: no cervical lymphade nopathy, neck supple HEART: S1, S2 normal CHEST: LUNGS: clear to auscultatio n bilaterally ABDOMEN: normal bowel sounds, no guarding or rigidity, no guarding or rigidity, no masses palpable, soft, nontender, nondistended NEUROLOGIC: alert and oriented SKIN: nonjaundiced, no spi ubaldo angiomata EXTREMITIES: no edema PERIPHERAL PULSES: BACK: BREASTS: MUSCULOSKELETAL: MALE GENITOURINARY: LYMPH NODES: RECTAL EXAM: FEMALE GENITOURINARY: ORAL CAVITY: mucosa moist
--- OUTSIDE RECORDS SUMMARY | 2024-08-05 11:29 | XMS_ITS | Encounter Summary ---
Author Organization [facility] Address [address] [place] [address] Care Team Providers Care Auto Body Repair Technician Name Role Phone Unknown, Doctor Primary Care Provider Unavailabl e Encounter Details Date Type Department Care Team (Late st Contact Info) Description 02/04/2017 Transplant Conversio n Encounter [facility] Health Information Management [address] [place] [id number] Provider, Historical Conversion ID Social History Tobacco Use Types Packs/Day Years [...] on filedocumented in this encounter Care Teams Auto Body Repair Technician Relationship Specialty Start Date End Date Unknown, Doctor Unknown Unknown, PRAKASH PCP - General 04/02/23 documented as of this encounter
--- OUTSIDE RECORDS SUMMARY | 2024-08-05 11:29 | XMS_ITS ---
Author Organization [facility] Address [address] [place] [address] Care Team Providers Care Checker Dump Grounds Name Role Phone Radhika Chacko Primary Care Provider Sameer Salcido [phone] REASON FOR VISIT crohn's Encounters Encounter Location Date Provider Diagnosis [facility] [address] [facility] [address] [place] [address] 02/12/2023 Sameer Valenzuela Plan Of Treatment Next Appt Details Provider Name:Sameer Valenzuela , 07/07/2025 01:00:00 PM, [address], [address], [place], [address], Progress Notes * NEHEMIAH CUENCA PDOB:[birth year] (74 yo M)Acc No.[id number]:02/12/2023 Progress Notes Patient:?NEHEMIAH CUENCA Provider:?Sameer Valenzuela MD :1950???Age:72 Y???Sex:Male Jonathan e:02/12/2023 Address:[address] [place] [address] Pcp:Radhika Chacko Subjective: * Chief Complaints: * ???1. Crohn's. * Medical History:? Objective: * Vitals:? Assessment: Plan: * Treatment: * * The named appointment provid er may or may not be the originator of this progress note, and it is not deemed complete until electronically signed by the appointment provider. Sign off status: Pending * Provider:?Sameer Valenzuela MD Date:? 023 Generated for Iza lopez/Dahlia/Kofiitting on:?08/05/2024 11:29 AM EDT
--- OUTSIDE RECORDS SUMMARY | 2024-08-05 11:29 | XMS_ITS | Encounter Summary ---
Author Organization [facility] Address [address] [facility] [address] [place] [address] Phone Care Team Providers Care Cloth Washer Back Tender Name Role Phone Curt Davis MD Primary Care Provider [phone] Encounter Details Date Type Department Care Team ([facility] Contact Info) Description 05/08/2021 Telephone [facility] [address] [facility] [address] [place] [address] Yoly Leyva Social History Tobacco [...] Visit [facility] [address] [place] [address] Jostin Gorman MD [address] [facility] [address] [place] [phone] documented as of this encounter Visit Diagnoses Not on filedocumented in this encounter Care Teams Cloth Washer Back Tender Relationship Specialty Start Date End Date Curt Davis MD [address] [place] [phone] PCP - General 05/14/20 documented as of this encounter
--- OUTSIDE RECORDS SUMMARY | 2024-08-05 11:29 | XMS_ITS | Clinical Summary ---
Author Organization [facility] Address [address] [place] [address] [address] [place] [address] Phone Care Team Providers Care Subscription Clerk Name Role Phone Curt Davis MD Primary Care Provider [phone] Allergies No known active allergies Medications lamoTRIgine [...] Encounters Date Type Department Care Team Description 06/13/2024 Orders Only [facility] [address] [place] [address] Jostin Gorman MD Stage 3b chronic kidney disease (HCC); Renal stone; Hypertensive renal disease 06/06/2024 2:30 PM EST Office Visit [facility] [address] [place] [address] Jostin Gorman MD Stage 3b chronic kidney disease (HCC) (Primary Dx); Renal stone; Hypertensive renal disease from Last 3 Months Immunizations Name Administration [...] Visit [facility] [address] [place] [address] Jostin Gorman MD [address] [facility] [address] [place] [address] Health Maintenance Due Date Last Done Comments Colorectal Cancer Screening: Annual FOBT 07/28/1999 Colorectal Cancer Screening: Colonoscopy 07/28/1999 Colorectal Cancer Screening: Sigmoidoscopy 07/28/1999 Pneumococcal Vaccine: 65+ Years (2 of 2 - PPSV23 or PCV20) 07/15/2016 05/20/2016 Influenza Vaccine (#1) 2024 02/01/2019, 2017 Hepatitis B Vaccine Aged Out 12/16/2016, 08/12/2016, 06/23/2016, Additional history exists No longer eligible based on patient's age to complete this topic Procedures Procedure Name Priority Date/Time Associated Diagnosis Comments PERIPHERAL BLOOD SMEAR, PATH REVIEW Routine 06/06/2024 3:47 PM EST VITAMIN D 25 HYDROXY Routine 06/06/2024 3:47 PM EST ALBUMIN Routine 06/06/2024 3:47 PM EST MAGNESIUM Routine 06/06/2024 3:47 PM EST PHOSPHATE ( PHOSPHORUS) Routine 06/06/2024 3:47 PM EST CALCIUM Routine 06/06/2024 3:47 PM EST CREATININE, BLOOD Routine 06/06/2024 3:4 7 PM EST BUN Routine 06/06/2024 3:47 PM EST ELECTROLYTE PANEL Routine 06/06/2024 3:4 7 PM EST PTH, INTACT (HC) Routine 06/06/2024 3:47 PM EST DIFF SLIDE REVIEW (HC) Routine 06/06/2024 3:47 PM EST CBC AND DIFFERENTIAL Routine 06/06/2024 3:47 PM EST from Last 3 Months Results * (ABNORMAL) Creatinine (06/06/2024 3:47 PM EST) Creatinine Serum 1.58(H) 0.5 - 1.4 mg/dL See order comments eGFR 43 See order comments Comment: Chronic Kidney Disease: ??Estimated GFR < 60 mL/min/1.73m2 Severe Kidney Disease: ??Estimated GFR < 15 mL/min/1.73m2 06/06/2024 3:47 PM EST 06/06/2024 3:47 PM EST us Jostin Gorman MD LAB BLOOD ORDERABLES Final Re sult Performing Organization Address [facility] Phone Number [facility] See order comments [place] [address] * Diff Slide Review (06/06/2024 3:47 PM EST) Slide Review VERIFIED See ord er comments 06/06/2024 3:47 PM EST 06/06/2024 3:47 PM EST us Jostin Gorman MD LAB HISTORICAL-CONVE RSIONS-UNSOLICITED RESULTS Edited Result - Final Performing Organization Address [facility] Phone Number [place] See order comments [place] [address] * (ABNORMAL) PTH, Intact (06/06/2024 3:47 PM EST) Parathyroid Hormone, Intact 120.7(H) 8.7 - 77.1 pg/mL See order comments 06/06/2024 3:47 PM EST 06/06/2024 3:47 PM EST us Jostin Gorman MD LAB [id number] SOLICITED RESULTS Final Result Performing Organization Address [facility] Phone Number [facility] See order comments [place] [address] * Peripheral blood smear (06/06/2024 3:47 PM EST) Pathologist Review SEE NOTE S ee order comments Comment: - Pancytopenia: consider immunosuppression (drug/medication effect), vs infection vs anemia of chronic disease vs other etiologies. Reviewed by Tete Argueta MD 06/06/2024 3:47 PM EST 06/06/2024 3:47 PM EST us Jostin Gorman MD LAB PATHOLOGY ORDERABLES Letty l Result Performing Organization Address [facility] Phone Number [place] See order comments [place] [address] * Vitamin D 25 Hydroxy (06/06/2024 3:47 PM EST) Pathologist [facility] Vitamin D, 25-Hydroxy 39.7 >30 ng/mL See order comments Comment: Health Based Reference Values* < 20 ??ng/mL ??Deficient 20-30 ng/mL ??Insufficient > 30 ??ng/mL ??Sufficient *Marlin AIKEN. N Engl J Med. 2007;357:266-280 Care must be taken in interpreting Vitamin D results from different laboratories and methodologies. ??Published data demonstrated that results from patients undergoing hemodialysis may show a negative bias when tested with various automated 25-OH vitamin D assays when compared to LC-MS/MS. When testing samples from patients whose predominant form of Vitamin D is Vitamin D2, such as patients receiving Vitamin D2 supplementation, results that are subtherapeutic should be confirmed with another method such as LC-MS/MS. 06/06/2024 3:47 PM EST 06/06/2024 3:47 PM EST us Jostin Gorman MD LAB BLOOD ORDERABLES Final Re sult [place] See order comments [place] [address] * (ABNORMAL) CBC and Differential (06/06/2024 3:47 PM EST) Pathologist [facility] WBC 2.5(L) 4.8 - 10.8 X10*3/uL See [...] 3:47 PM EST 06/06/2024 3:47 PM EST Jostin Gorman MD LAB BLOOD ORDERABLES Edited R esult - Final [place] See order comments [place] [address] * (ABNORMAL) BUN (06/06/2024 3:47 PM EST) BUN 25(H) 9 - 16 mg/dL See order comments 06/06/2024 3:47 PM EST 06/06/2024 3:47 PM EST Jostin Gorman MD LAB BLOOD ORDERABLES Final Re sult See order comments [place] [address] * Phosphorus (06/06/2024 3:47 PM EST) Phosphorus, Serum 3.5 2.7 - 4.5 mg/dL See order comments 06/06/2024 3:47 PM EST 06/06/2024 3:47 PM EST us Jostin Gorman MD LAB BLOOD ORDERABLES Final Re sult Performing Organization Address [facility] Phone Number [place] See order comments [place] [address] * Magnesium (06/06/2024 3:47 PM EST) Magnesium 1.8 1.6 - 2.6 mg/dL See order comments 06/06/2024 3:47 PM EST 06/06/2024 3:47 PM EST us Jostin Gorman MD LAB BLOOD ORDERABLES Final Re sult Performing Organization Address [facility] Number [place] See order comments [place] [address] * Calcium (06/06/2024 3:47 PM EST) Calcium 9.2 8.4 - 10.2 mg/dL See order comments 06/06/2024 3:47 PM EST 06/06/2024 3:47 PM EST us Jostin Gorman MD LAB BLOOD ORDERABLES Final Re sult Performing Organization Address [facility] Phone Number [place] See order comments [place] [address] * Albumin (06/06/2024 3:47 PM EST) Albumin 3.9 3.5 - 5.0 g/dL See order comments 06/06/2024 3:47 PM EST 06/06/2024 3:47 PM EST us Jostin Gorman MD LAB BLOOD ORDERABLES Final Re sult Performing Organization Address [facility] Number [place] See order comments [place] [address] * (ABNORMAL) Electrolyte panel (06/06/2024 3:47 PM EST) Sodium 144 135 - 145 mmol/L See order comments Potassium 4.2 3.3 - 5.1 mmol/L See order comments Chloride 110(H) 96 - 108 mmol/L See order comments Bicarbonate (CO2) 28 22 - 29 mmol/L See order comments Anion Gap 10(L) 12 - 20 See order comments 06/06/2024 3:47 PM EST 06/06/2024 3:47 PM EST us Jostin Gorman MD LAB BLOOD ORDERABLES Final Re sult [place] See order comments [place] [address] from Last 3 Months Insurance [facility] MEDICARE RR [facility] MEDICARE RR Care Teams Subscription Clerk Relationship Specialty Start Date End Date Curt Davis MD [address] [place] [address] PCP - General 05/14/20
--- OUTSIDE RECORDS SUMMARY | 2024-08-05 11:29 | XMS_ITS ---
Author Organization [facility] Address [address] [place] [address] Care Team Providers Care Converting Technician Name Role Phone Radhika Chacko Primary Care Provider Sameer Salcido [phone] Allergies No Known Allergies REASON FOR VISIT Patient presents today for crohn's Medications Medication SIG (Take, Route, Frequency, Duration) Notes Start Date End Date Status Mirtazapine Not-Taki ng Tamsulosin HCl 0.4 MG Oral for 90 Days Active Famotidine 40 MG TAKE 1 TABLET BY JANINA TH EVERY DAY IN THE EVENING for 90 Active DULoxetine HCl 30 MG Oral for 30 Active Vitamin D3 Active Cyanocobalamin 1000 MCG/ML INJECT 1ML INTRAMUSCULARLY ONCE A MONTH Injection once a month Active buPROPion HCl ER (SR) 150 MG TAKE 1 TABLET BY MOUTH TWICE A DAY Orally Once a day Active Potassium Citrate Ac tive Calcium Active Propranolol HCl 40 MG 1 tablet Orally On ce a day Active Cholecalciferol Acti ve lamoTRIgine 100 MG TAKE 1 TABLET BY JANINA TH EVERY DAY Oral for 90 Not-Taking Social History Tobacco Use: Social History Observation Description Date Details (start date - stop date) Never Smoker NA - NA Tobacco Use/Smoking Question Answer Notes Patient is a nonsmoker Alcohol Screen Question Answer Notes Did you have a drink containing alcohol in the p ast year? No Points 0 Interpretation Negative Section Notes: Nonsmoker; he describes at [facility] 2-4 beers per day for many years, but now describes no alcohol use since 2016 Vital Signs Blood pressure systolic 111 mm Hg 07/08/19 25 Blood pressure diastolic 11 mm Hg 025 Height 72 in 07/07/2024 Weight 153 lbs 07/07/2024 BMI 20.75 kg/m2 07/07/2024 Encounters Encounter Location Date Provider Diagnosis [facility] [address] [place] [address] 07/07/2024 Sameer Valenzuela Crohn''s disease of small [...] bleeding (ICD-10 - I85.10) Plan Of Treatment Treatment Notes Assessment Notes Encounter for screening for malignant neoplasm of colon We will plan to schedule a colonoscopy f or you later in 2025 Pending Test Test Name Order Date LIVER PROFILE 07/07/2024 CBC w DIFF 07/07/2024 Prothrombin Time INR 07/07/2024 Alpha Fetoprotein 07/07/2024 US abdomen complete 07/07/2024 Next Appt Details Follow Up: 1 Year, Reason: Provider Name:Sameer Valenzuela , 07/07/2025 01:00:00 PM, [address], [address], [place], [address], Progress Notes * NEHEMIAH CUENCA PDOB:[birth year] (74 yo M)Acc No.[id number]:07/07/2024 Progress Notes Patient:?NEHEMIAH CUENCA Provider:?Sameer Valenzuela MD :1950???Age:73 Y???Sex:Male Jonathan e:07/07/2024 Address:[address] [place], [place] [id number] Pcp:Radhika Chacko Subjective: * Chief Complaints: * ???1. Patient presents today for crohn's. * Medical History:?Hay fever-m ild, Denies OR,DM,CVA,Lung disease,renal disease, Kidney stones 2018--cystoscopy, Cirrhosis--2-4 beers QD for many years-abstinent since 2015--followed by [facility] Dr. Daniels at Liver transplant clinic--has MRI's, etc--variceal bleed in 2014-banded--EGD in 02/[address] Solares was negative for any varices nor portal gastropathy--- there were changes consistent with scarring from previous banding. He is being seen regularly at [facility] by Dr. Steiner and he remains on the transplant list. They are doing his periodic liver imaging and labs., Gallstones--no sx, Crohn's of SI and colon since the early -colonoscopy in 02/[address] Solares was neg for active colitis, including biopsies neg. for dysplasia--there was one small polyp removed but path was not available. He had been on Remicade for many years up until June of 2018-he apparently stopped due to the fact that he was in the midst of not having a director of philanthropy. He had nondetectable Remicade antibody levels in the summer and Fall of 2018., Depression, Renal insufficiency-Dr. Gorman, EGD 2020 with esophageal varices and changes c/w previous banding, Colonoscopy 2020 with no active Crohn's, polyps, nor dysplasia on biopsies. * Surgical History:?Ileocolect melody due to Crohn's and a fistua 2005, Broken left ankle , Basal cell removed left side of neck . * Family History:?Father: dece ased, Colon cancer [...] describes no alcohol use since 2016. * Medications:?Taking Cholecal ciferol , Taking Calcium , Taking Potassium Citrate , Taking buPROPion HCl ER (SR) 150 MG Tablet Extended Release 12 Hour TAKE 1 TABLET BY MOUTH TWICE A DAY Orally Once a day , Taking Cyanocobalamin 1000 MCG/ML Solution INJECT 1ML INTRAMUSCULARLY ONCE A MONTH Injection once a month , Taking Propranolol HCl 40 MG Tablet 1 tablet Orally Once a day , Taking Vitamin D3 , Taking DULoxetine HCl 30 MG Capsule Delayed Release Particles Oral , Taking Famotidine 40 MG Tablet TAKE 1 TABLET BY MOUTH EVERY DAY IN THE EVENING , Taking Tamsulosin HCl 0.4 MG Capsule Oral , Not-Taking/PRN Mirtazapine , Not-Taking/PRN lamoTRIgine 100 MG Tablet TAKE 1 TABLET BY MOUTH EVERY DAY Oral , Discontinued Cholestyramine 4 GM/DOSE Powder 1/2 TO 1 SCOOP MIXED IN 8 OUNCES OF ORANGE JUICE OR WATER ORALLY ONCE OR TWICE A DAY FOR DIARRHEA 30 DAYS , Discontinued Multivitamin Adult - Tablet as directed Orally , Discontinued Iron Complex , Discontinued Advil , Medication List reviewed and reconciled with the patient * Allergies:?N.K.D.A. Objective: * Vitals:?Wt:153lbs, Ht: 72 in , BMI:20.75Index, BP:111/11mm Hg, Wt-k.4. Assessment: * Assessment: 1.?Crohn''s disease of small and large intestines with complication - K50.819 (Primary)???2.?Other cirrhosis of liver - K74.69???3.?History of colon polyps - Z86.010???4.?Encounter for screening for malignant neoplasm of colon - Z12.11???5.?Secondary esophageal varices without bleeding - I85.10??? Plan: * Treatment: * 2.?Encounter for screening for malignant neoplasm of colon? Notes: We will plan to schedule a colonoscopy for you later in 2025?? * Preventive Medicine:? ??Screenings:?Fall Risk Screening?Fall Risk Assessment:?No falls in the past year,?Screening:?No falls in the past year,?Assessment:?Not performed, no reason specified,?Plan of Care:?Not documented, no reason specified.? * Follow Up:?1 Year * * The named appointment provid er may or may not be the originator of this progress note, and it is not deemed complete until electronically signed by the appointment provider. Sign off status: Pending * Provider:?Sameer Valenzuela MD Date:? 025 Generated for Iza lopez/Dahlia/Claytonsmitting on:?08/05/2024 11:29 AM EDT
--- OUTSIDE RECORDS SUMMARY | 2024-08-05 11:30 | XMS_ITS | Clinical Summary ---
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 Esophageal varices 04/14/2016 Immunizations Immunization Administration Dates Next Due Covid-19, Pfizer, mRNA, Garza valent, PF 30 mcg/0.3 mL dose (for [...] 1950 PTH 1950 Sigmoidoscopy 1950 Pneumococcal Vaccine: 50+ Ye ars (2 of 2 - PPSV23) 07/15/2016 05/20/2016 25 Hydroxy / Vitamin D 05/12/2017 05/12/2016 Phosphorus 05/12/2017 05/12/2016 Urine Microalbumin 04/11/2022 04/11/2021, 0 01/14/2021, 05/31/2019, Additional history exists COVID-19 Vaccine (2023-2 5 season) 2024 06/18/2023, 12/02/2022, 03/11/2022, Additional history exists Alcohol/Substance Use Screening 05/04/2024 Depression Screening and Follow-Up 05/04/2024 Health Care Proxy Review 05/04/2024 Social Drivers of Health Emily ual Screening 05/04/2024 Basic Metabolic Panel 05/25/2024 11/23/2023 , 04/02/2023, 09/25/2022, Additional history exists Hemoglobin 11/22/2024 11/23/2023, 04/0 06/2023, 04/02/2023, Additional history exists Influenza Vaccine (Season Ended) 2025 02/12/2023, 03/11/2022, 03/04/2022, Additional history exists DTaP,Tdap,and Td Vaccines (3 - Td or Tdap) 05/20/2026 05/20/2016, 05/20/2015, 05/21/2006 Hepatitis B Vaccines Completed 12/16/2016, 08/12/2016, 06/23/2016, Additional history exists Hepatitis C Screening Completed 06/01/2017, 017 Mammogram Discontinued 12/23/2018, 09/02/2018 Zoster Vaccines Completed 11/28/2020, 08/03, 09/20/2012 RSV Vaccine (60+ years old a nd patients) Completed 06/18/2023 Procedures * Due to [place] Divvyshot law, this organization might not be sharing negative HIV tests. Procedure Name Priority Date/Time Associated Diagnosis Comments LIVER PRE EXTERNAL PANEL Routine 11/23/2023 1:30 PM EDT COMPREHENSIVE METABOLIC PANEL Routine 04/02/2023 5:06 PM EST Other cirrhosis of liver HEPATITIS C ANTIBODY W/REFLEX TO HCV RNA, QUANTITATIVE PCR Routine 06/01/2017 11:17 AM EST Cryptogenic cirrhosis VITAMIN D, 25-HYDROXY, TOTAL, IMMUNOASSAY Routine 05/12/2016 1:54 PM EST PHOSPHORUS Routine 05/12/2016 1:54 PM EST from Last 3 Months or Most Recently Relevant to Health Maintenance Results * Due to [place] Divvyshot law, this organization might not be sharing [...] [facility] Bilirubin, Total 1.8 mg/dL TUNNEL HEADING INSPECTOR KARTHIK [facility] Alkaline Phosphatase 66 U/L [facility] AST 25 U/L [facility] ALT 17 U/L [facility] WBC 3.4 10*3/uL [facility] Hgb 12.7 [facility] Hematocrit 38.9 % [facility] Platelets 91 10*3/uL [facility] INR 1.10 [facility] Alpha Fetoprotein, Tumor Marker <1.8 [facility] 11/23/2023 1:30 PM EDT Jatin Daniels MD LAB BLOOD ORDERABLES Final Re sult [facility] [address] [place], [place] [id number] * (ABNORMAL) Comprehensive Metabolic Panel (04/02/2023 5:06 PM EST) NA 143 135 - 145 mmol/L 04/02/2023 5:42 PM EST [facility] K 4.1 3.5 - 5.3 mmol/L 04/02/2023 5:42 PM EST [facility] Cl 113(H) [...] - 4.8 g/dL 04/02/2023 5:42 PM EST [facility] Bilirubin, Total 1.5(H) 0.3 - 1.2 mg/dL 04/02/2023 5:42 PM EST [facility] Alkaline Phosphatase 55 30 - 115 U/L 04/02/2023 5:42 PM EST [facility] AST 22 10 - 40 U/L 04/02/2023 5:42 PM EST [facility] ALT 21 10 - 40 U/L 04/02/2023 5:42 PM EST [facility] BUN 32(H) 7 - 23 mg/dL 04/02/2023 5:42 PM EST [facility] eGFR 34(L) >=60 mL/min/1 .73m2 04/02/2023 5:42 PM EST [facility] Comment:The estimated glomer ular [...] MD LAB BLOOD ORDERABLES Final Re sult [facility] [address] [place] [address], * Hepatitis C Antibody w/Reflex to HCV RNA, Quantitative PCR (06/01/2017 11:17 AM EST) Hepatitis C Antibody NON-REACT BELLA NON-REACT BELLA 06/01/2017 8:11 PM EST [employer] [facility] Signal To Cut-Off 0.02 <1.00 06/01/2017 8:11 PM EST [employer] [facility] Blood specimen (specimen) Structure of peripheral vein / Unknown Venipuncture / Unknown 06/01/2017 11:17 AM EST 06/01/2017 11:57 AM EST Narrative [facility] - 06/01/2017 8:11 PM EST [facility] Received Date: us Jatin Daniels MD LAB BLOOD ORDERABLES Final Re sult [facility] [address], [place] [address], [facility] [address], [place] [address], * Vitamin D, 25-Hydroxy, Total, Immunoassay (05/12/2016 1:54 PM EST) Pathologist [facility] Calcidiol+ercalci diol 34 30 - 100 ng/mL [facility] Comment: Vitamin D Status ? 25-OH Vitamin D: Deficiency: ?<20 ng/mL Insufficiency: ? 20 - 29 ng/mL Optimal: ? > or = 30 ng/mL For 25-OH Vitamin D testing on patients on D2-supplementation and patients for whom quantitation of D2 and D3 fractions is required, the QuestAssureD() 25-OH VIT D, (D2,D3), LC/MS/MS is recommended: order code [id number] (patients >2yrs). For more information on this test, go to: http://education.Shareable Social/faq/LTK353 (This link is being provided for informational/educational purposes only.) 05/12/2016 1:54 PM EST 05/12/2016 2:30 PM EST us Florentin Erickson MD LAB BLOOD ORDERABLES Final Result [facility] [address], [place] [address], * Phosphorus (05/12/2016 1:54 PM EST) Phosphorus Blood 3.7 2.5 - 4.5 mg/dL [facility] 05/12/2016 1:54 PM EST 05/12/2016 2:29 PM EST us Florentin Erickson MD LAB BLOOD ORDERABLES Final Result [facility] [address] [place] [address] from Last 3 Months or Most Recently Relevant to Health Maintenance Insurance MEDICARE RR RETIREES [place], [place] [id number] [place] [address] SUPP MEDICARE RR RETIREES [facility] SUPP Advance Directives Documents on File Type Date Recorded Patient Child And Youth Program Assistant Expl [facility] Health Care Proxy 05/23/2016 12:00 AM [facility] Proxy Care Teams Analyst Sales Relationship Specialty Start Date End Date Unknown, Doctor Unknown Unknown, PRAKASH PCP - General 04/02/23
--- OUTSIDE RECORDS SUMMARY | 2024-08-05 11:30 | XMS_ITS | Referral Summary ---
Author Organization [facility] Address [address] [place] [address] Care Team Providers Care Credit Risk Officer Name Role Phone Unknown, Doctor Primary Care [...] Administration Dates Next Due Covid-19, Pfizer, mRNA, [place] valent, PF 30 mcg/0.3 mL dose (for [...] Not on file Procedures * Due to [place] law, this organization might not be sharing [...] to Health Maintenance Results * Due to [place] law, this organization might not be sharing [...] [facility] Bilirubin, Total 1.8 mg/dL LIQUOR GALLERY OPERATOR [facility]AR[facility] Alkaline Phosphatase 66 U/L [facility] AST 25 U/L [facility] ALT 17 U/L [facility] WBC 3.4 10*3/uL [facility] Hgb 12.7 [facility] Hematocrit 38.9 % [facility] Platelets 91 10*3/uL [facility] INR 1.10 [facility] Alpha Fetoprotein, Tumor Marker <1.8 [facility] 11/23/2023 1:30 PM EDT us Jatin Daniels MD LAB BLOOD ORDERABLES Final Re sult [facility] [address] [place] [address] * (ABNORMAL) Comprehensive Metabolic Panel [...] - 4.8 g/dL 04/02/2023 5:42 PM EST [facility] Bilirubin, Total 1.5(H) 0.3 - 1.2 mg/dL 04/02/2023 5:42 PM EST [facility] Alkaline Phosphatase 55 30 - 115 U/L 04/02/2023 5:42 PM EST [facility] AST 22 10 - 40 U/L 04/02/2023 5:42 PM EST [facility] ALT 21 10 - 40 U/L 04/02/2023 5:42 PM EST [facility] BUN 32(H) 7 - 23 mg/dL 04/02/2023 5:42 PM EST [facility] eGFR 34(L) >=60 mL/min/1 .73m2 04/02/2023 5:42 PM EST [facility] Comment:The estimated glomer ular [...] MD LAB BLOOD ORDERABLES Final Re sult [facility] [address] [place] [address], [place] * Hepatitis C Antibody w/Reflex to HCV RNA, Quantitative PCR (06/01/2017 11:17 AM EST) Hepatitis C Antibody NON-REACT BELLA NON-REACT BELLA 06/01/2017 8:11 PM EST [facility] Signal To Cut-Off 0.02 <1.00 06/01/2017 8:11 PM EST [employer] [facility] Blood specimen (specimen) Structure of peripheral vein / Unknown Venipuncture / Unknown 06/01/2017 11:17 AM EST 06/01/2017 11:57 AM EST Narrative [facility] 06/01/2017 8:11 PM EST [facility] Received Date: us Jatin Daniels MD LAB BLOOD ORDERABLES Final Re sult [facility] [address] [facility] [address] [facility], [place] [address], [employer] [facility] [address], [place] [address], * Vitamin D, 25-Hydroxy, Total, Immunoassay (05/12/2016 1:54 PM EST) Pathologist [facility] Calcidiol+ercalci diol 34 30 - 100 ng/mL [facility] Comment: Vitamin D Status ? 25-OH Vitamin D: Deficiency: ?<20 ng/mL Insufficiency: ? 20 - 29 ng/mL Optimal: ? > or = 30 ng/mL For 25-OH Vitamin D testing on patients on D2-supplementation and patients for whom quantitation of D2 and D3 fractions is required, the QuestAssureD(TM) 25-OH VIT D, (D2,D3), LC/MS/MS is recommended: order code 91222 (patients >2yrs). For more information on this test, go to: http://education.Standardized Safety/faq/CMQ002 (This link is being provided for informational/educational purposes only.) 05/12/2016 1:54 PM EST 05/12/2016 2:30 PM EST us Florentin Erickson MD LAB BLOOD ORDERABLES Final Result [facility] [address] [facility] [address]rd [address], [place] [address], * Phosphorus (05/12/2016 1:54 PM EST) Phosphorus Blood 3.7 2.5 - 4.5 mg/dL [facility] [employer] [facility] 05/12/2016 1:54 PM EST 05/12/2016 2:29 PM EST us Florentin Erickson MD LAB BLOOD ORDERABLES Final Result Performing Organization Address City/[facility] Co de Phone Number [facility] [employer] [address] [place] [address], from Last 3 Months or Most Recently Relevant to Health Maintenance Insurance MEDICARE RR RETIREES [facility] SUPP MEDICARE RR RETIREES [facility] MCR SUPP Advance Directives Documents on File Type Date Recorded Patient Public Health Physician Expl [facility] Health Care Proxy 05/23/2016 12:00 AM [facility] Proxy Care Teams Credit Risk Officer Relationship Specialty Start Date End Date Unknown, Doctor Unknown Unknown, PRAKASH PCP - General 04/02/23
--- OUTSIDE RECORDS SUMMARY | 2024-08-05 11:30 | XMS_ITS | Clinical Summary ---
Author Organization [facility] Address [address] [place] [address] Care Team Providers Care Diamond Setter Name Role Phone Curt Davis MD Primary [...] age to complete this topic Care Teams Diamond Setter Relationship Specialty Start Date End Date Curt Davis MD [address] [place] [id number] PCP - General Family Medicine 12/02/21
--- OUTSIDE RECORDS SUMMARY | 2024-08-05 11:30 | XMS_ITS ---
Author Name [facility] Organization Unknown Encounters Encounter Type Encounter Reason Primary Diagnosis Location Date Emergency Displaced fractu re of triquetrum (cuneiform) bone, unspecified wrist, initial encounter for closed fracture [facility] 12/02/2021 Care Team Organization Name Specialty Phone Email Start Date End Da te Sewaren OluKai LOGAN COFFEY Primary Care 12/02/2021 2 [facility] 12/02/2021
[2024-08-05 12:34] LABS: MANUAL DIFF FLAG NO
[2024-08-05 12:36] LABS: Basophils Percent Auto 0.9 % (0-2); Eosinophils Absolute Auto 0.1 X10*3/uL (0.0-0.4); Eosinophils Percent Auto 1.9 % (0-4); Hematocrit 40.8 % (42.0-52.0); Hemoglobin 14.1 g/dl (14.0-18.0); Imm Gran Abs Auto 0.01 X10*3/uL (0.00-0.03); Imm Gran Pct Auto 0.2 % (0.0-0.4); Lymphocytes Absolute Auto 0.5 X10*3/uL (1.2-4.9); Mean Corpuscular HGB Conc 34.6 g/dl (31.0-36.0); Mean Corpuscular Hemoglobin 30.9 pg (27.0-33.0); Mean Corpuscular Volume 89.3 fL (80.0-98.0); Mean Platelet Volume 9.6 fL (9.4-12.4); Monocytes Absolute Auto 0.3 X10*3/uL (0.1-1.2); Monocytes Percent Auto 7.9 % (2-11); Neutrophils Absolute Auto 3.4 x10*3/uL (2.0-8.3); Neutrophils Percent Auto 78.1 % (45-73); Red Blood Count 4.57 X10*6/uL (4.60-5.80); Red Cell Distribution Width 15.9 % (11.0-16.0); White Blood Count 4.3 X10*3/uL (4.8-10.8)
[2024-08-05 12:37] LABS: Platelet Count 81 X10*3/uL (160-400)
[2024-08-05 12:40] LABS: Prothrombin Time 11.9 SEC (10.9-12.4)
[2024-08-05 13:03] LABS: Alanine Aminotransferase 18 U/L (0-40); Alkaline Phosphatase 61 U/L (39-117); Aspartate Amino Transferase 23 U/L (5-37); Bilirubin Direct 0.7 mg/dL (0.0-0.5); Bilirubin Total 2.2 mg/dL (0.0-1.0); Total Protein 6.2 g/dL (6.5-8.0)
[2024-08-11 13:08] LABS: Alpha Fetoprotein 1.6 ng/mL (<6.1)
== END 2024-08-05 10:08 | disposition home or self-care (01) ==
LOC: HO.US 10:07
PROVIDERS: PCP Family Medicine; Visit Provider Internal Medicine
DX: K74.69 Other cirrhosis of liver (principal)
CPT/HCPCS: 36415; 76700; 80076; 82105; 85025; 85610

== ENCOUNTER → 2024-08-05 11:43 | Outpatient (BNV) | payer MEDICARE, OTHER, SELFPAY | PROVIDERS: PCP Family Medicine; Visit Provider Radiology Diagnostic Radiology | DX: K70.30 Alcoholic cirrhosis of liver without ascites (principal); I86.4 Gastric varices; K80.20 Calculus of gallbladder without cholecystitis without obstruction; N20.0 Calculus of kidney; N13.30 Unspecified hydronephrosis | CPT/HCPCS: 76700 ==

== ENCOUNTER 2024-12-12 14:48 | Outpatient (REF) | payer MEDICARE, OTHER, SELFPAY ==
[2024-12-12 15:10] LABS: MANUAL DIFF FLAG NO
--- OUTSIDE RECORDS SUMMARY | 2024-12-12 15:12 | XMS_ITS | Encounter Summary ---
Author Organization [facility] Address [address] [place] [address] Phone Care Team Providers Care Marketing Reporting Analyst Name Role Phone Pcp, Unknown Primary Care Provider Unavailabl e Curt Davis MD Unavailable Valente Alonso MD Unavailable Walker Escudero DO Unavailable [phone] Scott Mehta MD Unavailable [phone] Curt Davis MD Primary Care Provider Jordi Corbin Primary Care Provider [phone] Jordi Corbin Primary Care Provider Radhika Chacko MD Primary Care Provider + Encounter Details Date Type Department Care Team (Latest Contact Info) Description 03/04/2017 Transcribe Orders [facility] [address] [address] Jatin Daniels MD [address] [place] [address] Other cirrhosis of liver (Primary Dx) Social History Tobacco Use Types Packs/Day Years Used Date Smoking Tobacco: Never Assessed Sex and Gender Information Value Date Recorded Sex Assigned at Not on file Legal Sex Male 5:34 PM EST Gender Identity Not on file Sexual Orientation Not on file documented as of this encounter Plan of Treatment Upcoming Encounters Date Type Department Care Team (Late st Contact Info) Description 08/03/2025 8:30 AM EDT Office Visit [facility] Neurology [address] [place] [address] Thom Sexton MD [address] [facility]nd [place] [address] [email or web address] documented as of this encounter Procedures Procedure Name Priority Date/Time Associated Diagnosis Comments COMPREHENSIVE METABOLIC PANEL Routine 03/04/2017 12:03 PM EDT Other cirrhosis of liver AFP (NON-MATERNAL SPECIMENS) Routine 03/04/2017 12:03 PM EDT Other cirrhosis of liver PT-INR Routine 03/04/2017 12:03 PM EDT Other cirrhosis of liver CBC AND DIFFERENTIAL Routine 03/04/2017 12:03 PM EDT Other cirrhosis of liver documented in this encounter Results * AFP (non-maternal specimens) (03/04/2017 12:03 PM EDT) AFP (NON-MATERNAL) 1.2 0.8 - 7.5 ng/mL [facility] Blood 03/04/2017 12:0 3 PM EDT 03/04/2017 12:05 PM EDT us Jatin Daniels MD LAB BLOOD ORDERABLES Edited Result - Final [facility] [address] [place] [address] * (ABNORMAL) Comprehensive metabolic panel (03/04/2017 12:03 PM EDT) SODIUM 139 133 - 146 mmol/L [facility] POTASSIUM 4.2 3.3 - 5.1 mmol/L [facility] CHLORIDE 103 96 - 108 mmol/L [facility] CO2 26 21 - 35 mmol/L [facility] BUN 26(H) 6 - 19 mg/dL [facility] CREATININE 1.90(H) 0.5 - 1.5 mg/dL [facility] GLUCOSE 142(H) 70 - 99 mg/dL [facility] ALBUMIN 4.1 3.9 - 4.8 g/dL [facility] TOTAL PROTEIN 6.6 6.5 - 8.0 g/dL [facility] CALCIUM 8.9 8.4 - 10.3 mg/dL [facility] ALKALINE PHOSPHATASE 80 39 - 117 U/L [facility] TOTAL BILIRUBIN 1.3(H) 0 - 1.2 mg/dL [facility] AST 27 0 - 37 U/L [facility] ALT 26 0 - 40 U/L [facility] GLOBULIN 2.5 1 - 4.8 g/dL [facility] EGFR 36(L) 60 - 1,000 mL/min/1.7 3m2 [facility] Comment:Abnormal if <60. If patient is -Jordanian, multiply the result by 1.21. ANION GAP 14 10 - 20 mmol/L [facility] Blood 03/04/2017 12:0 3 PM EDT 03/04/2017 12:05 PM EDT us Jatin Daniels MD LAB BLOOD ORDERABLES Edited Result - Final [facility] [address] [place] [address] * (ABNORMAL) CBC and differential (03/04/2017 12:03 PM EDT) WBC 3.59 3.40 - 11.20 K/uL [facility] RBC 4.47(L) 4.50 - 5.50 M/uL [facility] HGB 14.2 13.0 - 17.0 g/dL [facility] HCT 41.9 40.0 - 51.0 % [facility] PLT 85(L) 130 - 400 K/uL [facility] Comment:Microscopic estimate : Platelets markedly decreased. MCV 93.7 79.0 - 98.0 fL [facility] MCH 31.8 27.0 - 34.8 pg [facility] MCHC 33.9 31.5 - 36.0 g/dL [facility] RDW 14.1 10.8 - 14.6 % [facility] MPV 11.5 9.4 - 12.4 fl [facility] NRBC 0.00 /100 WBCs [facility] ABSOLUTE NRBC 0.00 K/uL [facility] DIFF METHOD Auto [facility] NEUTS 67.7 45.30 - 77.70 % [facility] LYMPHS 20.3 12.30 - 39.70 % [facility] MONOS 8.4 4.10 - 12.80 % [facility] EOS 2.8 0 - 7.2 % [facility] BASOS 0.8 0 - 2.80 % [facility] Granulocytes, immature (%) 0.0 0.0 - 0.9 % [facility] ABSOLUTE NEUTS 2.43 1.40 - 7.70 K/uL [facility] ABSOLUTE LYMPHS 0.73 0.60 - 3.20 K/uL [facility] ABSOLUTE MONOS 0.30 0.11 - 0.59 K/uL [facility] ABSOLUTE EOS 0.10 0.01 - 0.50 K/uL [facility] ABSOLUTE BASOS 0.03 0.00 - 0.08 K/uL [facility] Granulocytes, immature 0.00 0.00 - 0.05 K/uL [facility] Blood 03/04/2017 12:0 3 PM EDT 03/04/2017 12:05 PM EDT us Jatin Daniels MD LAB BLOOD ORDERABLES Edited Result - Final Performing Organization Address City/State/[facility] Co de Phone Number [address] [address] * PT-INR (03/04/2017 12:03 PM EDT) PT 12.3 10.2 - 12.9 sec [facility] INR 1.1 0.9 - 1.1 [facility] Comment:Therapeutic range fo r oral Vitamin K antagonists: 2.0-3.5 Blood 03/04/2017 12:0 3 PM EDT 03/04/2017 12:05 PM EDT us Jatin Daniels MD LAB BLOOD ORDERABLES Edited Result - Final [facility] [address] [place] [address] documented in this encounter Visit Diagnoses Diagnosis Other cirrhosis of liver- Primary documented in this encounter Care Teams Marketing Reporting Analyst Relationship Specialty Start Date End Date Pcp, Unknown PCP - General 02/21/17 03/24/17 Curt Davis MD [address] [place] [phone] .[email or web address] PCP - General Family Medicine 03/25/17 09/24/22 Jordi Corbin PA [address] [place] [phone] [email or web address] PCP - General Physician Animal Therapist 09/25/22 08/03/23 Jordi Corbin PA [address] [place] [phone] [email or web address] PCP - General Physician Animal Therapist 08/04/23 07/19/24 Radhika Chacko MD [address] [place] [address] [email or web address] PCP - General Family Medicine 07/20/24 Curt Davis MD [address] [place] [address] .[email or web address] Historical LMR Provider 02/21/17 05/11/21 Valente Alonso MD [address] [address] Historical LMR Provider 02/21/17 2 Walker Escudero DO [address] [place] [phone] [email or web address] Historical LMR Provider 02/21/17 05/11/21 Scott Mehta MD [address] [place], [place] [phone] Historical LMR Provider 02/21/17 2 documented as of this encounter Additional Source Comments The information contained in this document represents components of the legal health record. It is not the complete legal health record.[facility]
--- OUTSIDE RECORDS SUMMARY | 2024-12-12 15:12 | XMS_ITS | Clinical Summary ---
Author Organization [facility] Address [address] [place] [address] Care Team Providers Care Rfid Specialist Name Role Phone Curt Davis MD Primary Care Provider Allergies No known active allergies Medications mirtazapine (REMERON) 30 MG tablet Take 30 [...] at Not on file Legal Sex Male 12:25 PM EDT Gender Identity Not on file Sexual Orientation Not on file Last Filed Vital Signs Vital Sign Reading Time Taken Comments Blood Pressure 119/80 12/02/2021 1:46 PM EDT Pulse 74 12/02/2021 1:46 PM EDT Temperature 35.7 C (96.2 F) 12/02/2021 1:46 PM EDT Respiratory Rate 16 12/02/2021 1:46 PM EDT [...] Zoster (Shingles) Vaccine (1 of 2) 2000 COVID-19 Vaccine (3 - season) 2024 07/26/2020, 07/03/2020 Influenza Vaccine 12/02/2024 02/02/2020, , 02/01/2019, Additional history exists RSV Vaccine 60 years and older and Patients (1 - 1-dose 75+ series) 2025 Hepatitis B Vaccines Aged Out No long er eligible based on patient's age to complete this topic Insurance [facility] MEDICARE RR Care Teams Rfid Specialist Relationship Specialty Start Date End Date Curt Davis MD [address] [place] [address] PCP - General Family Medicine 12/02/21
--- OUTSIDE RECORDS SUMMARY | 2024-12-12 15:12 | XMS_ITS | Encounter Summary ---
Author Organization [facility] Address [address] [place] [address] Care Team Providers Care Central Office Worker Name Role Phone Unknown, Doctor Primary Care Provider Unavailabl e Encounter Details Date Type Department Care Team (Late st Contact Info) Description 02/04/2017 Transplant Conversio n Encounter [facility] Health Information Management [address] [place] [phone] Provider, Historical Conversion [place] Social History Tobacco Use Types Packs/Day Years [...] on filedocumented in this encounter Care Teams Central Office Worker Relationship Specialty Start Date End Date Unknown, Doctor Unknown Unknown, PRAKASH PCP - General 04/02/23 documented as of this encounter
--- OUTSIDE RECORDS SUMMARY | 2024-12-12 15:12 | XMS_ITS ---
Author Name [facility] Organization Unknown Encounters Encounter Type Encounter Reason Primary Diagnosis Location Date Emergency Displaced fractu re of triquetrum (cuneiform) bone, unspecified wrist, initial encounter for closed fracture [facility] 12/02/2021 Care Team Organization Name Specialty Phone Email Start Date End Da te YomairaPruffi LOGAN COFFEY Primary Care 12/02/2021 2 YomairaPruffi 12/02/2021
--- OUTSIDE RECORDS SUMMARY | 2024-12-12 15:13 | XMS_ITS | Patient Health Record ---
Author Organization [facility] Address [address] [place] [address] Care Team Providers Care Sodder Name Role Phone Radhika Chacko Primary Care Provider Sameer Salcido [phone] Allergies No Known Allergies Results Component Value Reference Range Notes Complete Blood Count Auto Di ff Reviewed date:08/06/2024 01:47:26 PM Interpretation: Performing Lab:[facility], [address] [place] [id number] Notes/Report: White Blood Count 4.3 4.8-10.8 X10*3/uL Red Blood Count 4.57 4.60-5.80 X10*6/uL Hemoglobin 14.1 14.0-18.0 g/dl Hematocrit 40.8 42.0-52.0 % Mean Corpuscular Volume 89.3 80.0-98.0 fL Mean Corpuscular Hemoglobin 30.9 27.0-33.0 pg Mean Corpuscular HGB Conc 34.6 31.0-36.0 g/dl Red Cell Distribution Width 15.9 11.0-16.0 % Platelet Count 81 160-400 X10*3/uL Mean Platelet Volume 9.6 9.4-12.4 fL Neutrophils Percent Auto 78.1 45-73 % Imm Gran Pct Auto 0.2 0.0-0.4 % Lymphocytes Percent Auto 11.0 20-40 % Monocytes Percent Auto 7.9 2-11 % Eosinophils Percent Auto 1.9 0-4 % Basophils Percent Auto 0.9 0-2 % NRBC Pct Auto 0.0 0.0-0.2 /100WBC Neutrophils Absolute Auto 3.4 2.0-8.3 x10*3/u L Imm Gran Abs Auto 0.01 0.00-0.03 X10*3/uL Lymphocytes Absolute Auto 0.5 1.2-4.9 X10*3/u L Monocytes Absolute Auto 0.3 0.1-1.2 X10*3/uL Eosinophils Absolute Auto 0.1 0.0-0.4 X10*3/u L Basophils Absolute Auto 0.0 0.0-0.2 X10*3/uL NRBC Abs Auto 0.000 0.0-0.012 X10*3/uL Prothrombin Time INR Reviewed date:08/06/2024 01:47:06 PM Interpretation: Performing Lab:[address] [id number] Notes/Report: Prothrombin Time 11.9 10.9-12.4 SEC INTERNATIONAL NORM RATIO 1.0 0.9-1.1 INTERNATIONAL NORMALIZED RATIO (INR) REFERENCE RANGES Reference Range For patients not on anticoagulant therapy: 0.9 - 1.1 INR ranges for oral anticoagulant therapy: For prevention and treatment of venous thrombosis and pulmonary embolism: 2.0 - 3.0 For acute myocardial infarction with aspirin therapy: 2.0 - 3.0 For acute myocardial infarction without aspirin therapy: 3.0 - 4.0 For patients with mechanical prosthetic heart valves: 2.5 - 3.5 Liver Panel Reviewed date:08/06/2024 01:46:58 PM Interpretation: Performing Lab:[address] [address] Notes/Report: Bilirubin Total 2.2 0.0-1.0 mg/dL Slight Icte johnna. Bilirubin Direct 0.7 0.0-0.5 mg/dL Slight Ict erus. Aspartate Amino Transferase 23 5-37 U/L Alanine Aminotransferase 18 0-40 U/L Total Protein 6.2 6.5-8.0 g/dL Albumin Level 4.0 3.5-5.0 g/dL Alkaline Phosphatase 61 39-117 U/L Alpha Fetoprotein Reviewed date:09/04/2024 12:57:11 AM Interpretation: Performing Lab:[address] [address] Notes/Report: Alpha Fetoprotein 1.6 <6.1 ng/mL This test was performed using the [place] chemiluminescent method. Values obtained from different assay methods cannot be used interchangeably. AFP levels, regardless of value, should not be interpreted as absolute evidence of the presence or absence of disease. THIS TEST WAS PERFORMED AT: [facility] [address] [place] [id number] BENOIT SALAZAR MD US abdomen complete Reviewed date:08/06/2024 01:50:20 PM Interpretation: Performing Lab: Notes/Report: [address] [address] Ultrasound Report Signed Patient: Abhishek Howard MR#: [id number] 2 : 1950 Acct:[id number] Age/Sex: 74 / M ADM Date: 08/05/24 Loc: HO.US Attending Dr: Sameer Valenzuela MD Ordering Physician: Sameer Valenzuela MD Date of Service: 08/05/24 Procedure(s): US abdomen complete Accession Number(s): [id number] cc: Radhika Chacko MD; Sameer Vlaenzuela MD CLINICAL HISTORY: Cirrhosis of liver US abdomen complete with duplex and color Doppler Comparison: None Findings: Midline structures obscured by bowel gas. Varices are seen at the level of the pancreas. Liver diminutive in sizewith coarse echotexture Right lobe 10.0 cm length. No focal hepatic masses. Common duct 4.0 mm diameter. Physiologic distention of the gallbladder. Cholelithiasis. Gallbladder sludge with sludge balls. Equivocal nonmobile gallstone.Mild gallbladder wall thickening No pericholecystic fluid. No sonographic Meier sign. Main portal vein antegrade. Right kidney normal size, 8.9 cm in length. Normal cortical width and echotexture. No solid or cystic renal masses. Mild pelvicaliectasis. Left kidney normal in size10.2 cm in length. Normal cortical width and echotexture. Nephrolithiasis with caliceal stones lower pole measuring 2 mm, 2 mm, midpole measuring 6 mm and 4 mm. Lower pole renal cortical cyst measuring 1.2 x 1.0 x 1.0 cm. No evidence of obstructive uropathy. Spleen measures 16.1 cm. No splenic masses. Perisplenic varices No ascites. No lymphadenopathy. Impression: 1. Cirrhosis with evidence of portal hypertension. Bowel gas and varices obscures midline structures. 2. Cholelithiasis and gallbladder wall thickening without sonographic Meier's sign. Equivocal nonmobile gallstone. Hepatobiliary scan may help exclude cystic duct obstruction. Gallbladder wall thickening may be the sequela of a hypoalbuminemic state. 3. Nephrolithiasis on the left without evidence of obstructive uropathy. Pelvicaliectasis on the right. Renal cortical cyst left kidney has benign features. 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 No Information Medications Medication [...] Negative Section Notes: Nonsmoker; he describes at [facility] 2-4 beers per day for many [...] Problem Status W/U Status Risk Notes Problem 050025850 Encounter for screening for malignant neoplasm of colon (Z12.11) Active confirmed Problem History of polyp of colon (situation) (298478961) Personal history of colonic polyps (Z86.010) Active confirmed Problem Oesophageal varices without bleeding (61547917) Secondary esophageal varices without bleeding (I85.10) Active confirmed Problem Crohn (51240439) Crohn's disease of both small and large intestine with unspecified complications (K50.819) Active confirmed Problem 77185827 Other cirrhosis of liver (K74.69) Active confirmed Problem History of gastrointestinal tract bypass (838705115) Intestinal bypass and anastomosis status (Z98.0) Active confirmed Problem Duodenitis (19001517) Duodenitis (K29.80) Active confirmed Problem 235217964 History of colon polyps (Z86.010) Active confirmed Problem Cirrhotic (138594177) Cirrhosis (K74.60) Active confirmed Problem 90548710 Diarrhea, unspecified type (R19.7) Active confirmed Problem Diverticulosis of colon (341260918) Diverticulosis of colon (K57.30) Active confirmed Problem Crohn (27038293) Crohn''s diseas e of small and large intestines with complication (K50.819) Active confirmed Problem 02158426 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) Active confirmed Problem History of esophageal varices (55146990904020108) History of esophageal varices (Z87.19) Active confirmed Vital Signs Blood pressure diastolic 11 mm Hg 07/07/2024 Height 72 in 07/07/2024 Blood pressure systolic 111 mm Hg 07/07/2024 Weight 153 lbs 07/07/2024 BMI 20.75 kg/m2 07/07/2024 Encounters Encounter Location Date Provider Diagnosis [facility] [address] [place] [address] 07/07/2024 Sameer Valenzuela Crohn''s disease of small and large intestines with complication K50.819 ; Other cirrhosis of liver K74.69 ; History of colon polyps Z86.010 ; Encounter for screening for malignant neoplasm of colon Z12.11 and Secondary esophageal varices without bleeding I85.10 Assessments Encounter Date Diagnosis (ICD Code) Assessment Notes Treatment Notes Treatment Clinical Notes Section Notes 07/07/2024 Other cirrhosis of liver (ICD-10 - K74.69) 07/07/2024 Crohn''s disease of small and large intestines with complication (ICD-10 - K50.819) 07/07/2024 History of colon polyps (ICD-10 - [...] 01:00:00 PM, [address], [address], [place], [address], Insurance Providers Payer Name Payer Address Payer Phone Subscriber Number Group Number Insured Name Patient Relationship to Insured Coverage Start Date Coverage End Date WENDY LOERA/ADELITA HIN[employer] MEDICARE RAILRO[employer] MEDICARE [address] [address] [place] GUILLEN [phone] [id number] ABHISHEK HOWARD Self - patient is the insured [facility] [address] [place] [address] [id number] ABHISHEK HOWARD Self - patient is the insured 4 Medical (General) History Medical History History ICD Code Hay fever-mild Denies [place],DM,CVA,Lung disease,renal dise ase Kidney stones 2018--cystoscopy Cirrhosis--2-4 beers QD for many years-abstinent since 2015--followed by [facility] Dr. Daniels at Liver transplant clinic--has MRI's, etc--variceal bleed in 2014-banded--EGD in 02/[address] Solares was negative for any varices nor portal gastropathy--- there were changes consistent with scarring from previous banding. He is being seen regularly at [facility] by Dr. 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 He had nondetectable Remicade antibody levels in [...]
[2024-12-12 15:30] LABS: Hematocrit 39.5 % (42.0-52.0); Hemoglobin 12.9 g/dl (14.0-18.0); Imm Gran Abs Auto 0.01 X10*3/uL (0.00-0.03); Imm Gran Pct Auto 0.3 % (0.0-0.4); Lymphocytes Absolute Auto 0.5 X10*3/uL (1.2-4.9); Mean Corpuscular HGB Conc 32.7 g/dl (31.0-36.0); Mean Corpuscular Hemoglobin 29.7 pg (27.0-33.0); Mean Corpuscular Volume 91.0 fL (80.0-98.0); NRBC Abs Auto 0.000 X10*3/uL (0.0-0.012); NRBC Pct Auto 0.0 /100WBC (0.0-0.2); Red Blood Count 4.34 X10*6/uL (4.60-5.80); White Blood Count 4.0 X10*3/uL (4.8-10.8)
[2024-12-12 15:31] LABS: Platelet Count 95 X10*3/uL (160-400)
[2024-12-12 15:50] LABS: Appearance Urine Cloudy; Glucose Urine UA Negative (Negative); PH 5.5 (5.0-9.0); Specific Gravity - Urine 1.015 (1.005-1.025)
[2024-12-12 16:05] LABS: PTH Intact Intraoperative 100.0 pg/mL (8.7-77.1)
[2024-12-12 16:07] LABS: Albumin Level 3.8 g/dL (3.5-5.0); Anion Gap 11 (12-20); Blood Urea Nitrogen 20 mg/dL (9-16); Calcium 8.6 mg/dL (8.4-10.2); Carbon Dioxide 23 mmol/L (22-29); Chloride 116 mmol/L (96-108); Estimated Glomerular Filt Rate 41; Magnesium 1.9 mg/dL (1.6-2.6); Potassium 3.6 mmol/L (3.3-5.1); Sodium 146 mmol/L (135-145)
[2024-12-12 16:41] LABS: Microalbum/Creatinine Ratio Ur 12.9 ug/mg cr (<30); Protein/Creatinine Ratio, Ur 0.09 (<0.2); Total Protein Urine Random 12 mg/dL (<12)
== END 2024-12-12 14:49 | disposition home or self-care (01) ==
LOC: HO.LAB 14:48
PROVIDERS: PCP Family Medicine; Visit Provider Internal Medicine Nephrology
DX: I12.9 Hypertensive chronic kidney disease with stage 1 through stage 4 chronic kidney disease, or unspecified chronic kidney disease (principal); N18.32 Chronic kidney disease, stage 3b; N20.0 Calculus of kidney
CPT/HCPCS: 36415; 80051; 81003; 82040; 82043; 82306; 82310; 82565; 82570; 83735; 83970; 84100; 84156; 84520; 85025